=== PATIENT | female | born 1955 | race Caucasian/White ===

== ENCOUNTER 2023-02-16 09:45 | Outpatient (REF) | payer OTHER, SELFPAY ==
[2023-02-16 14:51] LABS: Alanine Aminotransferase 14 U/L (0-31); Albumin Level 4.3 g/dL (3.5-5.0); Alkaline Phosphatase 58 U/L (39-117); Anion Gap 12 (12-20); Aspartate Amino Transferase 19 U/L (5-31); Bilirubin Direct 0.2 mg/dL (0.0-0.5); Bilirubin Total 0.4 mg/dL (0.0-1.0); Blood Urea Nitrogen 15 mg/dL (9-16); Calcium 9.8 mg/dL (8.4-10.2); Carbon Dioxide 29 mmol/L (22-29); Chloride 105 mmol/L (96-108); Cholesterol 233 mg/dL (<200); Estimated Glomerular Filt Rate > 60; Glucose Random 87 mg/dL (60-115); HDL Cholesterol 84 mg/dL (>40); LDL Cholesterol Calculated 134 mg/dL (<100); Potassium 4.5 mmol/L (3.3-5.1); Sodium 141 mmol/L (135-145); Total Protein 7.3 g/dL (6.5-8.0); Triglycerides 77 mg/dL (<150)
[2023-02-16 15:05] LABS: Thyroid Stimulating Hormone 1.07 uIU/mL (0.32-4.0)
== END 2023-02-16 09:46 | disposition home or self-care (01) ==
LOC: HO.CHCLDS 09:45
PROVIDERS: Visit Provider Student in an Organized Health Care Education/Training Program
DX: E03.9 Hypothyroidism, unspecified (principal); E78.5 Hyperlipidemia, unspecified; M25.571 Pain in right ankle and joints of right foot; M25.561 Pain in right knee
CPT/HCPCS: 36415; 80048; 80061; 80076; 84443

== ENCOUNTER 2023-08-27 10:31 | Outpatient (RCR) | payer OTHER, SELFPAY | END 2023-09-29 08:35 | disposition home or self-care (01) | LOC: HO.PTCHIC 10:31 | PROVIDERS: PCP Student in an Organized Health Care Education/Training Program; Visit Provider Student in an Organized Health Care Education/Training Program | DX: M17.11 Unilateral primary osteoarthritis, right knee (principal) | CPT/HCPCS: 97110; 97161 ==

== ENCOUNTER 2023-09-30 09:38 | Outpatient (REF) | payer OTHER, SELFPAY ==
[2023-09-30 15:14] LABS: Alanine Aminotransferase 15 U/L (0-31); Albumin Level 4.2 g/dL (3.5-5.0); Alkaline Phosphatase 68 U/L (39-117); Anion Gap 13 (12-20); Aspartate Amino Transferase 21 U/L (5-31); Bilirubin Direct < 0.2 mg/dL (0.0-0.5); Bilirubin Total 0.2 mg/dL (0.0-1.0); Blood Urea Nitrogen 11 mg/dL (9-16); Calcium 9.7 mg/dL (8.4-10.2); Carbon Dioxide 27 mmol/L (22-29); Chloride 108 mmol/L (96-108); Cholesterol 200 mg/dL (<200); Estimated Glomerular Filt Rate > 60; Glucose Random 82 mg/dL (60-115); HDL Cholesterol 72 mg/dL (>40); LDL Cholesterol Calculated 90 mg/dL (<100); Potassium 4.7 mmol/L (3.3-5.1); Sodium 143 mmol/L (135-145); Total Protein 7.3 g/dL (6.5-8.0); Triglycerides 192 mg/dL (<150)
[2023-09-30 15:28] LABS: TSH reflex Free T4 0.66 uIU/mL (0.32-4.0)
== END 2023-09-30 09:39 | disposition home or self-care (01) ==
LOC: HO.CHCLDS 09:38
PROVIDERS: Visit Provider Student in an Organized Health Care Education/Training Program
DX: I10 Essential (primary) hypertension (principal)
CPT/HCPCS: 36415; 80048; 80061; 80076; 84443

== ENCOUNTER 2024-06-10 09:43 | Outpatient (REF) | payer OTHER, SELFPAY ==
--- OUTSIDE RECORDS SUMMARY | 2024-06-10 10:49 | XMS_ITS | Encounter Summary ---
Author Organization [employer] Address [address] [place] [address] 7t [place] [address] Care Team Providers Care Cementer Hand Name Role Phone Cesilia Otero MD Primary Care Provider [phone] Encounter Details Date Type Department Care Team (Latest Contact Info) Description 07/13/2018 Abstract [facility] CONVERSIONS Dental, Provider, DDS Social History Tobacco Use Types Packs/Day Years Used Date Smoking Tobacco: Never Assessed Comments Unknown Sex and Gender Information Value Date Recorded Sex Assigned at Female 01/06/2022 10:20 AM EDT Legal Sex Female 10:20 AM EDT Gender Identity Female 01/06/2022 10:20 AM EDT Sexual Orientation Straight 01/06/2022 10 :20 AM EDT documented as of this encounter Plan of Treatment Upcoming Encounters Date Type Department Care Team (Late st Contact Info) Description 08/29/2024 3:00 PM EDT Office Visit [facility] ADULT DENTAL [address] [place] [address] Windy Mackey documented as of this encounter Visit Diagnoses Not on filedocumented in this encounter Care Teams Cementer Hand Relationship Specialty Start Date End Date Cesilia Otero MD [address] [place] [address] PCP - General Family Medicine 02/23/12 documented as of this encounter
--- OUTSIDE RECORDS SUMMARY | 2024-06-10 10:49 | XMS_ITS | Encounter Summary ---
Author Organization [employer] Address [address] [facility] 7t [place] [address] Care Team Providers Care Kinesiology Internship Name Role Phone Cesilia Otero MD Primary Care Provider [phone] Encounter Details Date Type Department Care Team (Latest Contact Info) Description 06/08/2024 9:30 AM EDT Office Visit [facility] MED & PEDS [address] [place], [place] [phone] Cesilia Otero MD [address] [place] [address] Primary hypertension (Primary Dx); Hypothyroidism, unspecified type; Hyperlipidemia, unspecified hyperlipidemia type Social History Tobacco Use Types Packs/Day Years Used Date Smoking Tobacco: Never Smokeless Tobacco: Never Alcohol Use Standard Drinks/Week Comments Never 0 (1 standard drink = 0.6 oz pur e alcohol) Depression Answer Date Recorded Patient Health Questionnaire-9 Score 0 06/08/2024 Patient Health Questionnaire-9 Score 0 06/08/2024 Last PHQ-9: Questionnaire Data Not on file 0 06/08/2024 Housing Stability Answer Date Recorded What is your housing situation today? I have angel wong 09/22/[address] you li ve. Do you have problems with any of the following? None of the above 09/22/2023 Food Insecurity Answer Date Recorded Within the past 12 months, y ou worried that your food would run out before you got money to buy more: Never True 09/22/2023 Within the past 12 months,th e food you bought just didn't last and you didn't have enough money to get more: Never True Transportation Answer Date Recorded In the past 12 months, has l ack of transportation kept you from medical appts, meetings, work or from getting things needed for daily living? No 09/22/2023 Utilities Answer Date Recorded In the past 12 months, has t he electric, gas, oil or water company threatened to shut off services in your home? No 09/22/2023 Depression Answer Date Recorded Patient Health Questionnaire-2 Score 0 06/08/2024 Internet Access Answer Date Recorded Internet Access Q1 Yes 05/31/2024 Internet Access Q2 I do not want or need it 05/08 Comments No Sex and Gender Information Value Date Recorded Sex Assigned at Female 01/06/2022 10:20 AM EDT Legal Sex Female 10:20 AM EDT Gender Identity Female 01/06/2022 10:20 AM EDT Sexual Orientation Straight 01/06/2022 10 :20 AM EDT documented as of this encounter Last Filed Vital Signs Vital Sign Reading Time Taken Comments Blood Pressure 124/79 06/08/2024 9:15 AM EDT Pulse 76 06/08/2024 9:15 AM EDT Temperature 36.4 ??C (97.6 ??F) 06/08/2024 9:15 AM ED T Respiratory Rate 18 06/08/2024 9:15 AM EDT Oxygen Saturation 97% 06/08/2024 9:15 AM EDT Inhaled Oxygen Concentration - - Weight 67.6 kg (149 lb) 06/08/2024 9:15 AM EDT Height 159 cm (5' 2.6 ) 06/08/2024 9:15 AM EDT Body Mass Index 26.73 06/08/2024 9:15 AM EDT documented in this encounter Progress Notes * Cesilia Otero MD - 06/08/2024 9:30 AM EDT Subjective Patient ID: Michell Harp is a 69 y.o. female who presents for No chief complaint on file.. Hypertension This is a chronic problem. The current episode started more than 1 year ago. The problem is unchanged. Pertinent negatives include no chest pain, headaches, neck pain, palpitations or shortness of breath. Risk factors for coronary artery disease include family history and sedentary lifestyle. Past treatments include calcium channel blockers. Review of Systems Constitutional: Negative. Respiratory: Negative. Negative for shortness of breath. Cardiovascular: Negative for chest pain and palpitations. Gastrointestinal: Negative. Genitourinary: Negative. Musculoskeletal: Negative for neck pain. Neurological: Negative for headaches. Objective Physical Exam Constitutional: Appearance: Normal appearance. HENT: Head: Normocephalic and atraumatic. Right Ear: Tympanic membrane normal. Left Ear: Tympanic membrane normal. Mouth/Throat: Mouth: Mucous membranes are moist. Eyes: Pupils: Pupils are equal, round, and reactive to light. Cardiovascular: Rate and Rhythm: Normal rate and regular rhythm. Pulmonary: Effort: Pulmonary effort is normal. Breath sounds: Normal breath sounds. Abdominal: General: Abdomen is flat. Palpations: Abdomen is soft. Musculoskeletal: General: Normal range of motion. Skin: General: Skin is warm. Neurological: General: No focal deficit present. Mental Status: She is alert. Psychiatric: Mood and Affect: Mood normal. Behavior: Behavior normal. Assessment/Plan Diagnoses and all orders for this visit: Primary hypertension Maintain a low-sodium diet (less than 2 grams per day). Maintain a regular cardiovascular exercise program. Advised to maintain a low-fat, low-cholesterol diet. Counseled regarding importance of weight loss. Counseled re: potential co-morbidities including cardiovascular disease. - Basic Metabolic Panel; Future - Lipid Panel, Standard; Future - Hepatic Function Panel; Future Hypothyroidism, unspecified type Comments: Cont levothyroxine Labs ordered today Orders: - TSH with Reflex to Free T4; Future Hyperlipidemia, unspecified hyperlipidemia type Advised to maintain a low-fat, low-cholesterol diet. Counseled regarding importance of weight loss. - Basic Metabolic Panel; Future - Lipid Panel, Standard; Future - Hepatic Function Panel; Future documented in this encounter Plan of Treatment Upcoming Encounters Date Type Department Care Team (Late st Contact Info) Description 08/29/2024 3:00 PM EDT Office Visit [facility] ADULT DENTAL [address] [place] [address] Windy Mackey Scheduled Orders Name Type Priority Associated Diagnoses Orde r Schedule Basic Metabolic Panel Lab Routine Primary hypertension Hyperlipidemia, unspecified hyperlipidemia type Expected: 06/08/2024 (Approximate), Expires: 06/08/2025 Lipid Panel, Standard Lab Routine Primary hypertension Hyperlipidemia, unspecified hyperlipidemia type Expected: 06/08/2024 (Approximate), Expires: 06/08/2025 Hepatic Function Panel Lab Routine Primary hypertension Hyperlipidemia, unspecified hyperlipidemia type Expected: 06/08/2024 (Approximate), Expires: 06/08/2025 TSH with Reflex to Free T4 Lab Routine Hypothyroidism, unspecified type Expected: 06/08/2024 (Approximate), Expires: 06/08/2025 documented as of this encounter Visit Diagnoses Diagnosis Primary hypertension- Primary Unspecified essential hypertension Hypothyroidism, unspecified type Hyperlipidemia, unspecified hyperlipidemia type documented in this encounter Additional Health Concerns Assessment Noted Time PHQ-9 Depression Total Score: 0 06/09/19 25 9:16 AM EDT documented as of this encounter Care Teams Kinesiology Internship Relationship Specialty Start Date End Date Cesilia Otero MD [address] [place] [id number] PCP - General Family Medicine 02/23/12 documented as of this encounter
--- OUTSIDE RECORDS SUMMARY | 2024-06-10 10:49 | XMS_ITS | Clinical Summary ---
Author Organization [employer] Address [address] [facility] 7t [place] [address] Care Team Providers Care Executive Account Manager Name Role Phone Cesilia Otero MD Primary Care Provider [phone] Allergies Active Allergy Reactions Criticality Noted Date Comments Chlorthalidone Palpitations Low 11/26/2018 Medications [id number] E (Co Q-10 Vitamin E Fish Oil) [id number] capsule Take 1 tablet by mouth. 09/12/19 16 Active ergocalciferol (Vitamin D-2) 1.25 MG (11641 UT) capsule Take 1 capsule by mouth once a week. 01/05/20 20 Active melatonin 5 MG tabletIndication s:Primary insomnia 5 to 10 mg at bedtime 60 tablet 3 07/29/19 24 Active Blood Pressure kitIndications:P rimary hypertension To check the BP every other day. 1 kit 07/29/19 24 Active levothyroxine (Synthroid) 75 MCG tablet Take 1 tablet (75 mcg) by mouth before breakfast. 30 tablet 11 09/22/19 24 025 Active gemfibrozil (Lopid) 600 MG tablet Take 1 tablet (600 mg) by mouth 2 times daily. 60 tablet 11 09/22/19 24 025 Active simvastatin (Zocor) 40 MG tablet Take 0.5 tablets (20 mg) by mouth at bedtime. 15 tablet 11 09/22/19 24 025 Active amLODIPine (Norvasc) 5 MG tabletIndication s:Primary hypertension Take 1 tablet (5 mg) by mouth Once per day. 30 tablet 11 09/22/19 24 025 Active triamcinolone (Kenalog) 0.1 % cream APPLY TOPICALLY TO AFFECTED AREA(s) TWICE DAILY IN THE MORNING AND AT BEDTIME NEEDED 30 g 2 12/10/19 24 Active Diclofenac Sodium 1 % gelIndications:A cute pain of right knee To apply to the affected area 3 times a day 100 g 07/29/19 24 025 Discontinued Active Problems Problem Noted Date Diagnosed Date Dental calculus 10/26/2023 Missing teeth, acquired 10/26/2023 Primary hypertension 09/22/2023 Overview (09/22/2023): DASH diet Keep as active as tolerated. Follow up w/ PCP in 4 to 6 weeks. Dental plaque 08/27/2022 Hypothyroidism 07/04/2011 Hyperlipidemia 07/04/2011 Encounters Date Type Department Care Team Description 06/08/2024 9:30 AM EDT Office Visit [facility] & [facility]EDS [address] [place], [place] [phone] Cesilia Otero MD Primary hypertension (Primary Dx); Hypothyroidism, unspecified type; Hyperlipidemia, unspecified hyperlipidemia type 06/08/2024 Travel 2024 Telephone [facility] [address] [place], [place] [phone] Cesilia Otero MD 05/31/2024 Patient Outreach [facility] MEDIC[facility] [address] [place] [phone] Cesilia Otero MD Pre-visit Planning (SDOH screening negative and Tobacco screening negative) 05/26/2024 Orders Only [facility] [address] [place] [address] ProviderNazia MD from Last 3 Months Immunizations Name Administration Dates Next Due Influenza injectable quadriv alent IIV4 with preservative 12/01/2014 Influenza, IIV3, injectable 12/30/2013 Influenza, Split (incl. purified surface antigen ) 11/14/2011 Pfizer Covid-19 Vaccine 12+ 08/17/2020, Social History Tobacco Use Types Packs/Day Years Used Date Smoking Tobacco: Never Smokeless Tobacco: Never Tobacco Cessation:Counseling Given: Not Answered Alcohol Use Standard Drinks/Week Comments Never 0 [...] Orientation Straight 01/06/2022 10 :20 AM EDT Last Filed Vital Signs Vital Sign Reading [...] Mass Index 26.73 06/08/2024 9:15 AM EDT Plan of Treatment Upcoming Encounters Date Type Department Care Team (Late st Contact Info) Description 08/29/2024 3:00 PM EDT Office Visit [facility] ADULT DENTAL [address] [place] [address] Windy Mackey Health Maintenance Due Date Last Done Comments CT Colonography 1956 Colonoscopy 1956 Colorectal Cancer Screening 1956 FIT DNA/Cologuard 1956 FIT 1956 FOBT 1956 Sigmoidoscopy 1956 Hepatitis C Screening 1974 Pneumococcal Vaccine: 50+ Years (1 of 1 - PCV) 2006 Zoster Vaccines (1 of 2) 2006 COVID-19 Vaccine (3 - season) 2023 08/17/2020, 07/27/2020 Influenza Vaccine (#1) 2023 5, 12/30/2013, 11/14/2011 Dental Oral Exam 04/28/2024 10/26/2023, , 03/14/2019, Additional history exists Dental Prophylaxis 04/28/2024 10/26/2023, 0 08/27/2022, 03/14/2019, Additional history exists DTaP/Tdap/Td Vaccines (1 - Tdap) 09/21/2024 Postponed from 06/08/1975 (Patient Refused) Tobacco Screening 10/25/2024 10/26/2023 Dental X-Ray: Bitewings 10/26/2024 10/26/19 24, 08/27/2022, 03/14/2019, Additional history exists Mammogram 05/25/2025 05/25/2024, 05/07, 05/25/2024 Alcohol/Substance Use Screening 06/08/2025 06/08/2024 Depression Screening 06/08/2025 06/08/2024, 06/09/19 SDOH Screening 06/08/2025 06/08/2024 Dental X-Ray: Full Mouth 08/28/2025 08/27/2022, 06/08 Lipid Panel 09/29/2028 09/30/2023, 02/06, 08/05/2022, Additional history exists RSV Patients and Patients Aged 60 years or older (1 - 1-dose 75+ series) 06/08/2031 HIB Vaccines Aged Out No longer eligi ble based on patient's age to complete this topic HPV Vaccines Aged Out No longer eligi ble based on patient's age to complete this topic Hepatitis A Vaccines Aged Out No long er eligible based on patient's age to complete this topic Hepatitis B Vaccines Aged Out No long er eligible based on patient's age to complete this topic IPV Vaccines Aged Out No longer eligi ble based on patient's age to complete this topic Meningococcal Vaccine Aged Out No hilton eugene eligible based on patient's age to complete this topic RSV under 20 months Aged Out No longe r eligible based on patient's age to complete this topic Rotavirus Vaccines Aged Out No longer eligible based on patient's age to complete this topic Procedures Procedure Name Priority Date/Time Associated Diagnosis Comments HM MAMMOGRAPHY Routine 05/25/2024 2:35 PM EDT Full PROPHYLAXIS - ADULT Routine 10/26/2023 3:00 PM EDT Dental calculus BITEWINGS - 4 RADIOGRAPHIC IMAGES Routine 10/26/2023 3:00 PM EDT Dental calculus Missing teeth, acquired PERIODIC ORAL EVALUATION - ESTABLISHED PATIENT Routine 10/26/2023 3:00 PM EDT LIPID PANEL, STANDARD Routine 09/30/2023 9:41 AM EDT Primary hypertension INTRAORAL - COMPLETE SERIES OF RADIOGRAPHIC IMAGES Routine 08/27/2022 1:00 PM EDT Dental plaque from Last 3 Months or Most Recently Relevant to Health Maintenance Results * Hm Mammography (05/25/2024 2:35 PM EDT) Anatomical Region Laterality Modality Other Historical Provider MD HEALTH MAINTENANCE Final Result * (ABNORMAL) Lipid Panel, Standard (09/30/2023 9:41 AM EDT) Triglycerides 192(H) <150 mg/dL [facility] Comment:Desirable Triglyceri de: less than 150 mg/dLBorderline High Triglyceride 150-199 mg/dLHigh Triglyceride: 200-499 mg/dLVery High Triglyceride: greater than or equal to 5OO mg/dL Cholesterol 200(H) <200 mg/dL [facility] Comment:Desirable Cholestero l: less than 200 mg/dLBorderline High Cholesterol: 200-239 mg/dLHigh Cholesterol: greater than 239 mg/dL LDL Cholesterol Calculated 90 <100 mg/dL [facility] Comment:Desirable LDL: less than 100 mg/dLNear Optimal/Above Optimal LDL: 110- 129 mg/dLBorderline High LDL: 130-159 mg/dLHigh LDL: 160-189 mg/dLVery High LDL: greater than or equal to 190 mg/dL HDL Cholesterol 72 >40 mg/dL [facility] Comment:Desirable HDL: great er than 40 mg/dL Note: This HDL assay may give artificially low results in patients with liver disease. Blood Venous blood specimen / Unknown 09/30/2023 9:41 AM EDT 09/30/2023 2:40 PM EDT us Cesilia Otero MD LAB BLOOD ORDERABLES Final Resul t [facility] [address] [place] [address] [phone] from Last 3 Months or Most Recently Relevant to Health Maintenance Insurance [facility] DUAL COMPLETE HMO [facility] [place] [address] DENTAL - [facility] * Guarantor: Michell Harp Account Type Relation to Patient Date of Phone Billing Address Personal/[place] [address] * Guarantor: Michell Harp Account Type Relation to Patient Date of Phone Billing Address Personal/[place] [address] Care Teams Executive Account Manager Relationship Specialty Start Date End Date Cesilia Otero MD [address] [place] [id number] PCP - General Family Medicine 02/23/12
--- OUTSIDE RECORDS SUMMARY | 2024-06-10 10:49 | XMS_ITS | Encounter Summary ---
Author Organization [employer] Address [address] [facility] [address]t [place] [address] Care Team Providers Care Senior Accounting Associate Name Role Phone Cesilia Otero MD Primary Care Provider [phone] Encounter Details Date Type Department Care Team ([facility] Contact Info) Description 2024 Telephone [facility] [address] [place], [place] [phone] Cesilia Otero MD [address] [place] [address] Social History Tobacco Use Types Packs/Day Years [...] AM EDT documented as of this encounter Miscellaneous Notes * Telephone Encounter - Dayan Pritchard [place] - 2024 2:29 PM EDT Chart Prep Labs: done Images: done Vaccines due: yes Referrals: complete Screenings: colonoscopy Overdue care gaps: SDOH documented in this encounter Plan of Treatment Upcoming Encounters Date Type Department Care Team (Late st Contact Info) Description 08/29/2024 3:00 PM EDT Office Visit [facility] ADULT DENTAL [address] [place] [address] Windy Mackey documented as of this encounter Visit Diagnoses Not on filedocumented in this encounter Additional Health Concerns Assessment Noted Time PHQ-9 Depression Total Score: 0 08/02/19 10:54 AM EDT documented as of this encounter Care Teams Senior Accounting Associate Relationship Specialty Start Date End Date Cesilia Otero MD [address] [place] [address] PCP - General Family Medicine 02/23/12 documented as of this encounter
--- OUTSIDE RECORDS SUMMARY | 2024-06-10 10:49 | XMS_ITS | Encounter Summary ---
Author Organization [employer] Address [address] [facility] [address] [address] 7[address] [place] [address] Care Team Providers Care Solution Designer Name Role Phone Cesilia Otero MD Primary Care Provider [phone] Encounter Details Date Type Department Care Team ([facility] st Contact Info) Description 03/31/2023 Telephone [facility] [address] [place], [place] [phone] Cesilia Otero MD [address] [place], [place] [phone] Social History Tobacco Use Types Packs/Day Years Used Date Smoking Tobacco: Never Smokeless Tobacco: Never Alcohol Use Standard Drinks/Week Comments Never 0 (1 standard drink = 0.6 oz pur e alcohol) Depression Answer Date Recorded Patient Health Questionnaire-9 Score 0 08/01/2022 Housing Stability Answer Date Recorded What is your housing situation today? I have angeljae wong 12/14/[address] you li ve. Do you have problems with any of the following? No or not working smoke detectors 12/14/2022 Food Insecurity Answer Date Recorded Within the past 12 months, y ou worried that your food would run out before you got money to buy more: Never True 12/29/2022 Within the past 12 months,th e food you bought just didn't last and you didn't have enough money to get more: Never True Transportation Answer Date Recorded In the past 12 months, has l ack of transportation kept you from medical appts, meetings, work or from getting things needed for daily living? No 12/29/2022 Utilities Answer Date Recorded In the past 12 months, has t he electric, gas, oil or water company threatened to shut off services in your home? No 12/29/2022 Depression Answer Date Recorded Patient Health Questionnaire-2 Score 0 08/01/2022 Comments Unknown Sex and Gender Information Value [...] Description 08/29/2024 3:00 PM EDT Office Visit [facility] ADULT DENTAL [address] [place] [address] Windy Mackey documented as of this encounter Visit Diagnoses Not on filedocumented in this encounter Additional Health Concerns Assessment Noted Time PHQ-9 Depression Total Score: 0 08/02/19 10:54 AM EDT documented as of this encounter Care Teams Solution Designer Relationship Specialty Start Date End Date Cesilia Otero MD [address] [place] [address] PCP - General Family Medicine 02/23/12 documented as of this encounter
--- OUTSIDE RECORDS SUMMARY | 2024-06-10 10:49 | XMS_ITS | Encounter Summary ---
Author Organization [employer] Address [address] [facility] [address]t [place] [address] Care Team Providers Care Credit Counselor Name Role Phone Cesilia Otero MD Primary Care Provider [phone] Reason for Visit * Reason Onset Date Comments Results 03/05/2023 Encounter Details Date Type Department Care Team ([facility] st Contact Info) Description 03/05/2023 Telephone [facility] [address] [place], [place] [phone] Cesilia Otero MD [address] [place] [address] Results Social History Tobacco Use Types Packs/Day Years [...] encounter Miscellaneous Notes * Telephone Encounter - Ekaterina Perez RN - 03/31/2023 1:40 PM EST Returned call to pt regarding message below. Pt informed of normal labs except cholesterol levels. Reviewed lifestyle modifications with pt and also informed of stable XR results. Pt verbalized understanding and agrees with plan. * Telephone Encounter - Tessy Romo - 03/31/2023 11:49 AM EST Tc from pt returning call in regards below, please contact pt. * Telephone Encounter - Alyssa Farah RN - 03/05/2023 2:24 PM EST TC placed to patient at both numbers to review recent x-ray and lab results. No answer at either number. LM to call us back. Routing back to [facility] nurses to try again. Tc from pt requesting results for Xray done 02/16/23 and Labs that were also done on 02/16/23. Please contact pt at [phone]. * Telephone Encounter - Thomas Clarke - 03/05/2023 10:23 AM EST Tc from pt requesting results for Xray done 02/16/23 and Labs that were also done on 02/16/23. Please contact pt at [phone]. documented in this encounter Plan of Treatment Upcoming Encounters Date Type Department Care Team (Late st Contact Info) Description 08/29/2024 3:00 PM EDT Office Visit [facility] [address] [facility] [place] [address] Windy Mackey documented as of this encounter Visit Diagnoses Not on filedocumented in this encounter Additional Health Concerns Assessment Noted Time PHQ-9 Depression Total Score: 0 08/02/19 10:54 AM EDT documented as of this encounter Care Teams Credit Counselor Relationship Specialty Start Date End Date Cesilia Otero MD [address] [facility] [place] [address] PCP - General Family Medicine 02/23/12 documented as of this encounter
--- OUTSIDE RECORDS SUMMARY | 2024-06-10 10:49 | XMS_ITS | Encounter Summary ---
Author Organization [employer] Address [address] [facility] 7t [place] [address] Care Team Providers Care It Sales Consultant Name Role Phone Cesilia Otero MD Primary Care Provider [phone] Encounter Details Date Type Department Care Team (Late st Contact Info) Description 05/26/2024 Orders Only [facility] [address] [place] [employer], [place] [phone] ProviderNazia MD Social History Tobacco Use Types Packs/Day Years Used Date Smoking Tobacco: Never Smokeless Tobacco: Never Alcohol Use Standard Drinks/Week Comments Never 0 (1 standard drink = 0.6 oz pur e alcohol) Depression Answer Date Recorded Patient Health Questionnaire-9 Score 0 08/01/2022 Housing Stability Answer Date Recorded What is your housing situation today? I have angel wnog 09/22/[address] you li [...] Recorded Patient Health Questionnaire-2 Score 0 08/01/2022 Internet Access Answer Date Recorded Internet Access Q1 No 11/06/2023 Internet Access Q2 I do not want or need it 10/09 Comments No Sex and Gender Information Value [...] Description 08/29/2024 3:00 PM EDT Office Visit [facility] ADULT D[facility]AL [address] [place] [address] Windy Mackey documented as of this encounter Procedures Procedure Name Priority Date/Time Associated Diagnosis Comments HM MAMMOGRAPHY Routine 05/25/2024 2:35 PM EDT documented in this encounter Results * Hm Mammography (05/25/2024 2:35 PM EDT) Anatomical Region Laterality Modality Other Historical Provider HEALTH MAINTENANCE Final Result documented in this encounter Visit Diagnoses Not on filedocumented in this encounter Additional Health Concerns Assessment Noted Time PHQ-9 Depression Total Score: 0 08/02/19 10:54 AM EDT documented as of this encounter Care Teams It Sales Consultant Relationship Specialty Start Date End Date Cesilia Otero MD [address] [place] [address] PCP - General Family Medicine 02/23/12 documented as of this encounter
--- OUTSIDE RECORDS SUMMARY | 2024-06-10 10:49 | XMS_ITS | Encounter Summary ---
Author Organization [employer] Address [address] [place] [address] 7 [place] [address] Care Team Providers Care Metalizer Field Operation Name Role Phone Cesilia Otero MD Primary Care Provider [phone] Reason for Referral * Consultation (Routine) - Closed Specialty Diagnoses / Procedures Referred By Angelika chandra Referred To Contact Physical Therapy Diagnoses Primary osteoarthritis of right knee Kaylin Smith MD [address] [place] [address] Phone: tel: fax: [facility] [place] Physical Therapy [address] [place] [address] Phone: tel: fax: Referral ID Status Reason Start Date Expiration Date V isits Requested Visits Authorized [id number] Closed Specialty Services Required 08/04/2023 08/03/2024 1 1 Encounter Details Date Type Department Care Team (Late st Contact Info) Description 08/04/2023 Orders Only [facility] CHC MED & PEDS [address] [place], [place] [phone] Kaylin Smith MD [address] [place], [place] [phone] Primary osteoarthritis of right knee (Primary Dx) Social History Tobacco Use Types Packs/Day Years Used Date Smoking Tobacco: Never Smokeless Tobacco: Never Alcohol Use Standard Drinks/Week Comments Never 0 (1 standard drink = 0.6 oz pur e alcohol) Depression Answer Date Recorded Patient Health Questionnaire-9 Score 0 08/01/2022 Housing Stability Answer Date Recorded What is your housing situation today? I have angel wong 12/14/[address] you [...] Description 08/29/2024 3:00 PM EDT Office Visit [facility] ADULT DENTAL [address] [place] [address] Windy Mackey Scheduled Referrals Name Type Priority Associated Diagnoses Orde r Schedule Referral to Physical Therapy Outpatient Referral Routine Primary osteoarthritis of right knee Expected: 08/04/2023 (Approximate), Expires: 08/03/2024 documented as of this encounter Visit Diagnoses Diagnosis Primary osteoarthritis of right knee- Primary documented in this encounter Additional Health Concerns Assessment Noted Time PHQ-9 Depression Total Score: 0 08/02/19 10:54 AM EDT documented as of this encounter Care Teams Metalizer Field Operation Relationship Specialty Start Date End Date Cesilia Otero MD [address] [place] [address] PCP - General Family Medicine 02/23/12 documented as of this encounter
--- OUTSIDE RECORDS SUMMARY | 2024-06-10 10:49 | XMS_ITS | Clinical Summary ---
Author Organization [facility] Address [address] [place] [phone] Phone Care Team Providers Care Reinforcing Steel Placer Name Role Phone Cesilia Otero MD Primary Care Provider [phone] Encounters Date Type Department Care Team Description 05/25/2024 1:28 PM EDT - 05/25/2024 11:59 PM EDT Hospital [facility] [address] [address] Encounter for screening mammogram for breast cancer Discharge Disposition: Home or Self Care from Last 3 Months Social History Tobacco Use Types Packs/Day Years Used Date Smoking Tobacco: Never Assessed Comments No Sex and Gender Information Value Date Recorded Sex Assigned at Not on file Legal Sex Female 12:49 AM EST Gender Identity Not on file Sexual Orientation Not on file Obstetrics History Para Term AB IAB SAB Ectopic Multiple Livin g Live Births 4 Last Filed Vital Signs Vital Sign Reading Time Taken Comments Blood Pressure - - Pulse - - Temperature - - Respiratory Rate - - Oxygen Saturation - - Inhaled Oxygen Concentration - - Weight 65.3 kg (144 lb) 05/25/2024 1:43 PM EDT Height 160 cm (5' 3 ) 05/25/2024 1:43 PM EDT Body Mass Index 25.51 05/25/2024 1:43 PM EDT Plan of Treatment Health Maintenance Due Date Last Done Comments DTaP,Tdap,and Td Vaccines (1 - Tdap) 06/08/1975 Pneumococcal Vaccine: 50+ Years (1 of 1 - PCV) 2006 Zoster Vaccines (1 of 2) 2006 Colorectal Cancer Screening: Colonoscopy 02/09/2022 Falls Risk Assessment 02/09/2022 Hepatitis C Screening 02/09/2022 Medicare Annual Wellness Visit 02/09/2022 Osteoporosis Screening (Bone Density Screening) 02/09/2022 Social Influencers of Health Screening 02/09/2022 Depression Screening 08/02/2023 08/01/2022 COVID-19 Vaccine ( season) 2023 08/17/2020, 07/27/2020 Hypertension/CHF/CAD Annual BMP Blood Test 05/25/2024 Influenza Vaccine (Season Ended) 2024 12/01/2014, 12/30/2013, 11/14/2011 Breast Cancer Screening 05/25/2026 05/26/19, 02/27/2023, 12/27/2021, Additional history exists Cholesterol Screening (Lipid Panel) 09/29/2028 09/30/2023 RSV Immunization Adult Patients (1 - 1-dose 75+ series) 06/08/2031 HIB [...] on patient's age to complete this topic MMR Vaccines Aged Out No longer eligi ble based on patient's age to complete this topic Meningococcal ACWY Vaccine Aged Out N o longer eligible based on patient's age to complete this topic Meningococcal B Vacine Aged Out No lo nger eligible based on patient's age to complete this topic RSV Immunization Patients Under 20 months Aged Out No longer eligible based on patient's age to complete this topic Varicella Vaccines Aged Out No longer eligible based on patient's age to complete this topic Procedures Procedure Name Priority Date/Time Associated Diagnosis Comments MG MAMMO DIGITAL SCREENING W JARET BILAT Routine 05/25/2024 1:44 PM EDT Encounter for screening mammogram for breast cancer from Last 3 Months Results * MG Mammo Digital Screening w Jaret bilat (05/25/2024 1:44 PM EDT) Anatomical Region Laterality Modality Breast Bilateral Mammography 05/25/2024 3:47 PM EDT Impressions 05/25/2024 3:48 PM EDT No evidence of breast malignancy. BI-RADS CATEGORY: 1 - NEGATIVE RECOMMENDATION: Screening bilateral mammogram is recommended in 1 year. Mammo Location: [facility], [address] [place] [address], [address], . -------- FINAL REPORT -------- Dictated By: Carley Maldonado Dictated Date: 05/25/2024 15:47 ET Assigned Physician: Carley Maldonado Reviewed and Electronically Signed By: Carley Maldonado Signed Date: 05/25/2024 15:48 ET Workstation ID: [id number] Transcribed By: Self Edit Transcribed Date: 05/25/2024 15:47 ET Narrative 05/25/2024 3:48 PM EDT CLINICAL: 68 years old, Female, routine annual exam. COMPARISON: 02/27/2023, 12/27/2021, 10/12/2020, 10/22/2019 and 08/09/2018 ?? TECHNIQUE: Bilateral MLO and CC views were obtained digitally with 3-D mammogram (digital breast tomosynthesis). Computer-aided detection was utilized in evaluation of this exam (CAD). FINDINGS: There is no evidence of suspicious mass or architectural distortion. ??No worrisome calcifications are evident. ??There has been no significant change from prior exam(s). ?? BREAST DENSITY: A - The breasts are almost entirely fatty. Procedure Note Carley Maldonado MD - 05/25/2024 CLINICAL: 68 years old, Female, routine annual exam. COMPARISON: 02/27/2023, 12/27/2021, 10/12/2020, 10/22/2019 and 08/09/2018 TECHNIQUE: Bilateral MLO and CC views were obtained digitally with 3-Dmammogram (digital breast tomosynthesis). Computer-aided detection wasutilized in evaluation of this exam (CAD). FINDINGS: There is no evidence of suspicious mass or architectural distortion. Noworrisome calcifications are evident. There has been no significantchange from prior exam(s). BREAST DENSITY: A - The breasts are almost entirely fatty. IMPRESSION: No evidence of breast malignancy. BI-RADS CATEGORY: 1 - NEGATIVE RECOMMENDATION: Screening bilateral mammogram is recommended in 1 year. Mammo Location: [facility], [address] [place] [address], [id number], . -------- FINAL REPORT -------- Dictated By: Carley Maldonado Dictated Date: 05/25/2024 15:47 ET Assigned Physician: Carley Maldonado Reviewed and Electronically Signed By: Carley Maldonado Signed Date: 05/25/2024 15:48 ET Workstation ID: [id number] Transcribed By: Self Edit Transcribed Date: 05/25/2024 15:47 ET us Self Referral Sppl IMG BI PROCEDURES Final Resul t from Last 3 Months Insurance [employer] MEDICARE MEDICAID - [place] Care Teams Reinforcing Steel Placer Relationship Specialty Start Date End Date Cesilia Otero MD [address] [place] [id number] PCP - General Family Medicine 05/25/24
--- OUTSIDE RECORDS SUMMARY | 2024-06-10 10:49 | XMS_ITS | Encounter Summary ---
Author Organization [employer] Address [address] [facility] 7t [place] [address] Care Team Providers Care Fern Gatherer Name Role Phone Cesilia Otero MD Primary Care Provider [phone] Encounter Details Date Type Department Care Team ([facility] st Contact Info) Description 09/30/2023 Orders Only [facility] CHC MED & PEDS [address] [place], [place] [phone] Cesilia Otero MD [address] [place], [place] [phone] Social History Tobacco Use Types Packs/Day Years [...] Patient Health Questionnaire-2 Score 0 08/01/2022 Comments No Sex and Gender Information Value [...] Description 08/29/2024 3:00 PM EDT Office Visit [facility] ADULT DENTAL [address] [place] [address] Windy Mackey documented as of this encounter Visit Diagnoses Not on filedocumented in this encounter Additional Health Concerns Assessment Noted Time PHQ-9 Depression Total Score: 0 08/02/19 10:54 AM EDT documented as of this encounter Care Teams Fern Gatherer Relationship Specialty Start Date End Date Cesilia Otero MD [address] [place] [address] PCP - General Family Medicine 02/23/12 documented as of this encounter
--- OUTSIDE RECORDS SUMMARY | 2024-06-10 10:49 | XMS_ITS | Encounter Summary ---
Author Organization [employer] Address [address] [facility] [address] 7t [place] [address] Care Team Providers Care Warehouse Logistics Manager Name Role Phone Cesilia Otero MD Primary Care Provider [phone] Encounter Details Date Type Department Care Team (Latest Contact Info) Description 06/08/2024 Travel Social History Tobacco Use Types Packs/Day Years [...] Description 08/29/2024 3:00 PM EDT Office Visit [facility] ADULT DENTAL [address] [place] [address] Windy Mackey documented as of this encounter Visit Diagnoses Not on filedocumented in this encounter Additional Health Concerns Assessment Noted Time PHQ-9 Depression Total Score: 0 06/09/19 25 9:16 AM EDT documented as of this encounter Care Teams Warehouse Logistics Manager Relationship Specialty Start Date End Date Cesilia Otero MD [address] [place] [address] PCP - General Family Medicine 02/23/12 documented as of this encounter
[2024-06-10 14:46] LABS: Alanine Aminotransferase 19 U/L (0-31); Albumin Level 4.1 g/dL (3.5-5.0); Alkaline Phosphatase 68 U/L (39-117); Anion Gap 9 (12-20); Aspartate Amino Transferase 26 U/L (5-31); Bilirubin Direct 0.2 mg/dL (0.0-0.5); Bilirubin Total 0.7 mg/dL (0.0-1.0); Blood Urea Nitrogen 10 mg/dL (9-16); Calcium 9.3 mg/dL (8.4-10.2); Carbon Dioxide 27 mmol/L (22-29); Chloride 108 mmol/L (96-108); Cholesterol 229 mg/dL (<200); Estimated Glomerular Filt Rate > 60; Glucose Random 83 mg/dL (60-115); HDL Cholesterol 78 mg/dL (>40); LDL Cholesterol Calculated 118 mg/dL (<100); Potassium 4.4 mmol/L (3.3-5.1); Sodium 140 mmol/L (135-145); Total Protein 6.9 g/dL (6.5-8.0); Triglycerides 165 mg/dL (<150)
== END 2024-06-10 09:44 | disposition home or self-care (01) ==
LOC: HO.CHCLDS 09:43
PROVIDERS: Visit Provider Student in an Organized Health Care Education/Training Program
DX: I10 Essential (primary) hypertension (principal); E78.5 Hyperlipidemia, unspecified; E03.9 Hypothyroidism, unspecified
CPT/HCPCS: 36415; 80048; 80061; 80076; 84443

== ENCOUNTER 2025-01-09 10:23 | Outpatient (REF) | payer MEDICARE, OTHER, SELFPAY ==
--- OUTSIDE RECORDS SUMMARY | 2025-01-09 12:25 | XMS_ITS | Encounter Summary ---
Author Organization [employer] Address [address] [facility] 7t [place] [address] Care Team Providers Care Pulverizer Operator Name Role Phone Cesilia Otero MD Primary Care Provider [phone] Hellen Mcconnell MD Primary Care Provider [phone] Encounter Details Date Type Department Care Team (Late st Contact Info) Description 05/26/2024 Orders Only [facility] [address] [place], [place] [phone] Provider, MD Nazia Social History Tobacco Use Types Packs/Day Years Used Date Smoking Tobacco: Never Smokeless Tobacco: Never Alcohol Use Standard Drinks/Week Comments Never 0 (1 standard drink = 0.6 oz pur e alcohol) Depression Answer Date Recorded Patient Health Questionnaire-9 Score 0 08/01/2022 Housing Stability Answer Date Recorded What is your housing situation today? I have angeljae wong 09/22/[address] you [...] as of this encounter Plan of Treatment Not on file documented as of this encounter Procedures Procedure [...] Time PHQ-9 Depression Total Score: 0 08/02/19 23 10:54 AM EDT documented as of this encounter Care Teams Pulverizer Operator Relationship Specialty Start Date End Date Cesilia Otero MD [address] [place] [address] PCP - General Family Medicine 02/23/12 01/04/25 Hellen Mcconnell MD [address] [place] [address] PCP - General Family Medicine 01/05/25 documented as of this encounter
--- OUTSIDE RECORDS SUMMARY | 2025-01-09 12:25 | XMS_ITS | Encounter Summary ---
Author Organization [email or web address] Address [address] [place] [address] Care Team Providers Care Electroslag Welding Machine Operator Name Role Phone Cesilia Otero MD Primary Care Provider [phone] Hellen Mcconnell MD Primary Care Provider [phone] Reason for Referral * Consultation (Routine) - Closed Specialty Diagnoses / Procedures Referred By Contfiona chandra Referred To Contact Physical Therapy Diagnoses Primary osteoarthritis of right knee Kaylin Smith MD [address] [place] [address] Phone: tel: fax: [facility] Physical Therapy [address] [place] [address] Phone: tel: fax: Referral ID Status Reason Start Date Expiration Date V isits Requested Visits Authorized [id number] Closed Specialty Services Required 08/04/2023 08/03/2024 1 1 Encounter Details Date Type Department Care Team (Late st Contact Info) Description 08/04/2023 Orders Only [facility] CHC MED & PEDS [address] [place], [place] [phone] Kaylin Smith MD [address] [place], [place] [phone] Primary osteoarthritis of right knee (Primary Dx) [...] as of this encounter Plan of Treatment Scheduled Referrals Name Type Priority Associated Diagnoses [...] documented as of this encounter Care Teams Electroslag Welding Machine Operator Relationship Specialty Start Date End Date Cesilia Otero MD [address] [place] [address] PCP - General Family Medicine 02/23/12 01/04/25 Hellen Mcconnell MD [address] [place] [address] PCP - General Family Medicine 01/05/25 documented as of this encounter
--- OUTSIDE RECORDS SUMMARY | 2025-01-09 12:25 | XMS_ITS | Encounter Summary ---
Author Organization [employer] Address [address] [place] [address] 7 [place] [address] Care Team Providers Care Band Saw Marker Name Role Phone Cesilia Otero MD Primary Care Provider [phone] Hellen Mcconnell MD Primary Care Provider [phone] Encounter Details Date Type Department Care Team (Latest Contact Info) Description 07/13/2018 [facility] Dental, Provider, DDS Social History Tobacco [...] on file documented as of this encounter Visit Diagnoses Not on filedocumented in this encounter Care Teams Band Saw Marker Relationship Specialty Start Date End Date Cesilia Otero MD [address] [place] [address] PCP - General Family Medicine 02/23/12 01/04/25 Hellen Mcconnell MD [address] [place] [address] PCP - General Family Medicine 01/05/25 documented as of this encounter
--- OUTSIDE RECORDS SUMMARY | 2025-01-09 12:25 | XMS_ITS | Encounter Summary ---
Author Organization [employer] Address [address] [facility] 7t [place] [address] Care Team Providers Care Meat Scrubber Name Role Phone Cesilia Otero MD Primary Care Provider [phone] Hellen Mcconnell MD Primary Care Provider [phone] Encounter Details Date Type Department Care Team ([facility] st Contact Info) Description 03/31/2023 Telephone [facility] MEDICINE [address] [place] [address] Cesilia Otero MD [address] [place], [place] [phone] Social History Tobacco Use Types Packs/Day Years Used Date Smoking Tobacco: Never Smokeless Tobacco: Never Alcohol Use Standard Drinks/Week Comments Never 0 (1 standard drink = 0.6 oz pur e alcohol) Depression Answer Date Recorded Patient Health Questionnaire-9 Score 0 08/01/2022 Housing Stability Answer Date Recorded What is your housing situation today? I have angel judith 12/14/[address] you li [...] documented as of this encounter Care Teams Meat Scrubber Relationship Specialty Start Date End Date Cesilia Otero MD [address] [place] [address] PCP - General Family Medicine 02/23/12 01/04/25 Hellen Mcconnell MD [address] [place] [address] PCP - General Family Medicine 01/05/25 documented as of this encounter
--- OUTSIDE RECORDS SUMMARY | 2025-01-09 12:25 | XMS_ITS | Clinical Summary ---
Author Organization [employer] Address [address] [facility] 7t [place] [address] Care Team Providers Care Spike Machine Feeder Name Role Phone Hellen Mcconnell MD Primary Care Provider [phone] Allergies Active Allergy Reactions Criticality Noted Date Comments Amlodipine Angioedema 07/18/2024 Chlorthalidone Palpitations Low 11/26/2018 Medications PIN-HUO-Fmyirvko A81-Inskluh E (Co Q-10 Vitamin E Fish Oil) 38-19-21-200 capsule Take 1 tablet by mouth. 6 Active ergocalciferol (Vitamin D-2) 1.25 MG (43412 UT) capsule Take 1 capsule by mouth once a week. 0 Active melatonin 5 MG tabletIndications :Primary insomnia 5 to 10 mg at bedtime 60 tablet 3 4 Active Blood Pressure kitIndications:Pr imary hypertension To check the BP every other day. 1 kit 4 Active triamcinolone (Kenalog) 0.1 % cream APPLY TOPICALLY TO AFFECTED AREA(s) TWICE DAILY IN THE MORNING AND AT BEDTIME NEEDED 30 g 2 4 Active simvastatin (Zocor) 40 MG tablet Take 1 tablet (40 mg) by mouth at bedtime. 30 tablet 11 5 07/19/19 26 Active lisinopril 10 MG tablet Take 1 tablet (10 mg) by mouth Once per day. 30 tablet 11 5 07/19/19 26 Active levothyroxine (Synthroid, Levoxyl) 75 MCG tablet TAKE ONE TABLET EVERY MORNING BEFORE BREAKFAST 90 tablet 3 5 Active gemfibrozil (Lopid) 600 MG tablet TAKE ONE TABLET TWICE DAILY 60 tablet 11 5 Active Active Problems Problem Noted Date Diagnosed Date Dental calculus 10/26/2023 Missing teeth, acquired 10/26/2023 Primary hypertension 09/22/2023 Overview (09/22/2023): DASH diet Keep as active as tolerated. Follow up w/ PCP in 4 to 6 weeks. Dental plaque 08/27/2022 Hypothyroidism 07/04/2011 Hyperlipidemia 07/04/2011 Encounters Date Type Department Care Team Description 01/02/2025 10:00 AM EDT Office Visit [facility] MED & PEDS [address] [place] [address] Cesilia Otero MD Primary hypertension (Primary Dx); Hypothyroidism, unspecified type; Hyperlipidemia, unspecified hyperlipidemia type; Screening for colon cancer 01/02/2025 Travel 12/30/2024 Telephone [facility] MED & PEDS [address] [place] [address] Cesilia Otero MD Chart Prep 11/14/2024 Refill [facility] MED & PEDS [address] [place] [address] Cesilia Otero MD 10/28/2024 Refill [facility] MED & PEDS [address] [place] [address] Cesilia Otero MD from Last 3 Months Immunizations Immunization Administration Dates Next Due Influenza injectable quadriv [...] your housing situation today? I have angel sing 09/22/[address] you li [...] Answer Date Recorded Internet Access Q1 Yes 09/25/2024 Internet Access Q2 Not on file 09/25/2024 Comments No Sex and Gender Information Value Date Recorded Sex Assigned at Female 01/06/2022 10:20 AM EDT Legal Sex Female 10:20 AM EDT Gender Identity Female 01/06/2022 10:20 AM EDT Sexual Orientation Straight 01/06/2022 10 :20 AM EDT Last Filed Vital Signs Vital Sign Reading Time Taken Comments Blood Pressure 156/86 01/02/2025 10:05 AM EDT Mannually checked Pulse 66 01/02/2025 10:05 AM EDT Temperature 36.9 C (98.4 F) 01/02/2025 10:05 AM EDT Respiratory Rate 18 01/02/2025 10:0 5 AM EDT Oxygen Saturation 97% 06/08/2024 9:1 5 AM EDT Inhaled Oxygen Concentration - - Weight 65.8 kg (145 lb) 01/02/2025 10:0 5 AM EDT Height 167.6 cm (5' 6 ) 01/02/2025 10:0 5 AM EDT Body Mass Index 23.4 01/02/2025 10:05 AM EDT Plan of Treatment Health Maintenance Due Date Last Done Comments CT Colonography 1955 Colonoscopy 1955 Colorectal Cancer Screening 1955 FIT DNA/Cologuard 1956 FIT 1956 FOBT 1955 Sigmoidoscopy 1955 Hepatitis C Screening 1974 DTaP/Tdap/Td Vaccines (1 - Tdap) 06/08/1975 Pneumococcal Vaccine: 50+ Years (1 of 1 - PCV) 2006 Zoster Vaccines (1 of 2) 2006 Dental Oral Exam 04/28/2024 10/26/2023, , 03/14/2019, Additional history exists Dental Prophylaxis 04/28/2024 10/26/2023, 0 08/27/2022, 03/14/2019, Additional history exists Dental X-Ray: Bitewings 10/26/2024 10/26/19 24, 08/27/2022, 03/14/2019, Additional history exists Mammogram 05/25/2025 05/25/2024, 05/07, 05/25/2024 Alcohol/Substance Use Screening 06/08/2025 06/08/2024 Depression Screening 06/08/2025 06/08/2024, 06/09/19 25 SDOH Screening 06/08/2025 06/08/2024 Dental X-Ray: Full Mouth 08/28/2025 08/27/2022, 06/08 Influenza Vaccine (#1) 2025 5, 12/30/2013, 11/14/2011 Postponed from 11/07/2024 (Patient Refused) COVID-19 Vaccine ( season) 2026 08/17/2020, 07/27/2020 Postponed from 11/07/2024 (Patient Refused) Tobacco Screening 01/02/2026 01/02/2025 Lipid Panel 06/10/2029 06/10/2024, 09/07, 02/16/2023, Additional history exists RSV Patients and Patients [...] age to complete this topic Meningococcal B Vaccine Aged Out No l onger eligible based on patient's age to complete [...] Procedure Name Priority Date/Time Associated Diagnosis Comments LIPID PANEL, STANDARD Routine 06/10/2024 9:44 AM EDT Primary hypertension Hyperlipidemia, unspecified hyperlipidemia type HM MAMMOGRAPHY Routine 05/25/2024 2:35 PM EDT Full PROPHYLAXIS - ADULT Routine 10/26/2023 3:00 PM EDT Dental calculus BITEWINGS - 4 RADIOGRAPHIC IMAGES Routine 10/26/2023 3:00 PM EDT Dental calculus Missing teeth, acquired PERIODIC ORAL EVALUATION - ESTABLISHED PATIENT Routine 10/26/2023 3:00 PM EDT INTRAORAL - COMPLETE SERIES OF RADIOGRAPHIC IMAGES Routine 08/27/2022 1:00 PM EDT Dental plaque from Last 3 Months or Most Recently Relevant to Health Maintenance Results * (ABNORMAL) Lipid Panel, Standard (06/10/2024 9:44 AM EDT) Triglycerides 165(H) <150 mg/dL [facility] Comment:Desirable Triglyceri de: less than 150 mg/dLBorderline High Triglyceride 150-199 mg/dLHigh Triglyceride: 200-499 mg/dLVery High Triglyceride: greater than or equal to 5OO mg/dL Cholesterol 229(H) <200 mg/dL [facility] Comment:Desirable Cholestero l: less than 200 mg/dLBorderline High Cholesterol: 200-239 mg/dLHigh Cholesterol: greater than 239 mg/dL LDL Cholesterol Calculated 118(H) <100 mg/dL [facility] Comment:Desirable LDL: less than 100 mg/dLNear Optimal/Above Optimal LDL: 110- 129 mg/dLBorderline High LDL: 130-159 mg/dLHigh LDL: 160-189 mg/dLVery High LDL: greater than or equal to 190 mg/dL HDL Cholesterol 78 >40 mg/dL [facility] Comment:Desirable HDL: great er than 40 mg/dL Note: This HDL assay may give artificially low results in patients with liver disease. Blood Venous blood specimen / Unknown 06/10/2024 9:44 AM EDT 06/10/2024 1:57 PM EDT us Cesilia Otero MD LAB BLOOD ORDERABLES Final Resul t [facility] [address] [place] [address] [phone] * Hm Mammography (05/25/2024 2:35 PM EDT) Anatomical Region Laterality Modality Other us Historical Provider HEALTH MAINTENANCE Final Result from Last 3 Months or Most Recently Relevant to Health Maintenance Insurance spring [facility], [place] [address] [facility] DUAL COMPLETE HMO DENTAL - [facility] - [facility] * Guarantor: Michell Harp Account Type Relation to Patient Date of Phone Billing Address Personal/[place] [address] * Guarantor: Michell Harp Account Type Relation to Patient Date of Phone Billing Address Personal/[place] [address] * Guarantor: Michell Harp Account Type Relation to Patient Date of Phone Billing Address Personal/[place] [address] Care Teams Spike Machine Feeder Relationship Specialty Start Date End Date Hellen Mcconnell MD [address] [place] [address] PCP - General Family Medicine 01/05/25
--- OUTSIDE RECORDS SUMMARY | 2025-01-09 12:25 | XMS_ITS | Encounter Summary ---
Author Organization [employer] Address [address] [place] [address] 7 [place] [address] Care Team Providers Care Geographic Information System Surveyor Name Role Phone Cesilia Otero MD Primary Care Provider [phone] Hellen Mcconnell MD Primary Care Provider [phone] Reason for Visit * Reason Onset Date Comments Results 03/05/2023 Encounter Details Date Type Department Care Team ([facility] st Contact Info) Description 03/05/2023 Telephone [facility] CHC MED & PEDS [address] [place], [place] [phone] Cesilia Otero MD [address] [place] [address] Results Social History Tobacco Use Types Packs/Day [...] to call us back. Routing back to [facility] nurses to try again. Tc from pt requesting results for Xray done 02/16/23 and Labs that were also done on 02/16/23. Please contact pt at [phone]. * Telephone Encounter - Thomas Clarke - 03/05/2023 10:23 AM EST Tc from pt requesting results for Xray done 02/16/23 and Labs that were also done on 02/16/23. Please contact pt at [phone]. documented in this encounter Plan of Treatment Not on file documented as of this encounter Visit Diagnoses Not on filedocumented in this encounter Additional Health Concerns Assessment Noted Time PHQ-9 Depression Total Score: 0 08/02/19 10:54 AM EDT documented as of this encounter Care Teams Geographic Information System Surveyor Relationship Specialty Start Date End Date Cesilia Otero MD [address] [place] [id number] PCP - General Family Medicine 02/23/12 01/04/25 Hellen Mcconnell MD [address] [place] [address] PCP - General Family Medicine 01/05/25 documented as of this encounter
--- OUTSIDE RECORDS SUMMARY | 2025-01-09 12:25 | XMS_ITS | Encounter Summary ---
Author Organization [employer] Address [address] [facility] 7t [place] [address] Care Team Providers Care Medical Director Of Hospice Name Role Phone Cesilia Otero MD Primary Care Provider [phone] Hellen Mcconnell MD Primary Care Provider [phone] Encounter Details Date Type Department Care Team ([facility] st Contact Info) Description 09/30/2023 Orders Only [facility] CHC MED & PEDS [address] [place], [place] [phone] Cesilia Otero MD [address] [place] [address] Social History Tobacco Use Types Packs/Day Years [...] documented as of this encounter Care Teams Medical Director Of Hospice Relationship Specialty Start Date End Date Cesilia Otero MD [address] [place] [address] PCP - General Family Medicine 02/23/12 01/04/25 Hellen Mcconnell MD [address] [place] [address] PCP - General Family Medicine 01/05/25 documented as of this encounter
[2025-01-09 14:34] LABS: Alanine Aminotransferase 20 U/L (0-31); Albumin Level 4.5 g/dL (3.5-5.0); Alkaline Phosphatase 66 U/L (39-117); Aspartate Amino Transferase 28 U/L (5-31); Cholesterol 221 mg/dL (<200); HDL Cholesterol 74 mg/dL (>40); Total Protein 7.4 g/dL (6.5-8.0); Triglycerides 139 mg/dL (<150)
== END 2025-01-09 10:24 | disposition home or self-care (01) ==
LOC: HO.CHCLDS 10:23
PROVIDERS: Visit Provider Student in an Organized Health Care Education/Training Program
DX: I10 Essential (primary) hypertension (principal); E03.9 Hypothyroidism, unspecified; E78.5 Hyperlipidemia, unspecified
CPT/HCPCS: 36415; 80061; 80076

== ENCOUNTER 2025-02-25 09:04 | Outpatient (AMB) | payer MEDICARE, SELFPAY ==
--- OUTSIDE RECORDS SUMMARY | 2025-02-25 09:06 | XMS_ITS | Encounter Summary ---
Author Organization [employer] Address [address] [place] [address] 7 [place] [address] Care Team Providers Care Turner And Former Automatic Name Role Phone Cesilia Otero MD Primary Care Provider [phone] Hellen Mcconnell MD Primary Care Provider [phone] Encounter Details Date Type Department Care Team (Latest Contact Info) Description 07/13/2018 Abstract [facility] CONVERSIONS Dental, Provider, DDS Social History Tobacco [...] Care Team (Late st Contact Info) Description 03/08/2025 2:00 PM EST Office Visit [facility] CHC MED & PEDS [address] [place] [address] Hellen Mcconnell MD [address] [place] [address] documented as of this encounter Visit Diagnoses Not on filedocumented in this encounter Care Teams Turner And Former Automatic Relationship Specialty Start Date End Date Cesilia Otero MD [address] [place] [address] PCP - General Family Medicine 02/23/12 01/04/25 Hellen Mcconnell MD [address] [place] [address] PCP - General Family Medicine 01/05/25 documented as of this encounter
--- OUTSIDE RECORDS SUMMARY | 2025-02-25 09:06 | XMS_ITS | Encounter Summary ---
Author Organization [employer] Address [address] [facility] 7t [place] [address] Care Team Providers Care Seo Team Lead Name Role Phone Hellen Mcconnell MD Primary Care Provider [phone] Encounter Details Date Type Department Care Team (Late st Contact Info) Description 01/23/2025 Orders Only [facility] CHC MED & PEDS [address] [place], [place] [phone] Provider, MD Nazia Social History Tobacco Use [...] Description 03/08/2025 2:00 PM EST Office Visit [facility] CHC MED & PEDS [address] [place] [address] Hellen Mcconnell MD [address] [place] [address] documented as of this encounter Procedures Procedure Name Priority Date/Time Associated Diagnosis Comments XR LUMBAR SPINE COMPLETE 4+ VIEWS Routine 01/20/2025 documented in this encounter Results * XR Lumbar Spine Complete 4+ Views (01/20/2025) Anatomical Region Laterality Modality Spine, L-spine Radiographic Gauri ging Historical Provider MD PEARSON XR PROCEDURES Final R esult documented in this encounter Visit Diagnoses Not on filedocumented in this encounter Additional Health Concerns Assessment Noted Time PHQ-9 Depression Total Score: 0 06/09/19 9:16 AM EDT documented as of this encounter Care Teams Seo Team Lead Relationship Specialty Start Date End Date Hellen Mcconnell MD [address] [place] [address] PCP - General Family Medicine 01/05/25 documented as of this encounter
--- OUTSIDE RECORDS SUMMARY | 2025-02-25 09:06 | XMS_ITS | Encounter Summary ---
Author Organization [employer] Address [address] [facility] 7t [place] [address] Care Team Providers Care Cloth Shader Name Role Phone Cesilia Otero MD Primary Care Provider [phone] Hellen Mcconnell MD Primary Care Provider [phone] Reason for Visit * Reason Onset Date Comments Results 03/05/2023 Encounter Details Date Type Department Care Team ([facility] st Contact Info) Description 03/05/2023 Telephone [facility] MED & PEDS [address] [place], [place] [phone] Cesilia Otero MD [address] [place] [address] Results Social History Tobacco Use Types Packs/Day [...] to call us back. Routing back to [facility] nurses to try again. Tc from pt requesting results for Xray done 02/16/23 and Labs that were also done on 02/16/23. Please contact pt at [phone]. * Telephone Encounter - Thomas Clarke - 03/05/2023 10:23 AM EST Tc from pt requesting results for Xray done 02/16/23 and Labs that were also done on 02/16/23. Please contact pt at [phone]. documented in this encounter Plan of Treatment Upcoming Encounters Date Type Department Care Team (Late st Contact Info) Description 03/08/2025 2:00 PM EST Office Visit [facility] CHC MED & PEDS [address] [place] [address] Hellen Mcconnell MD [address] [place] [address] documented as of this encounter Visit Diagnoses Not on filedocumented in this encounter Additional Health Concerns Assessment Noted Time PHQ-9 Depression Total Score: 0 08/02/19 23 10:54 AM EDT documented as of this encounter Care Teams Cloth Shader Relationship Specialty Start Date End Date Cesilia Otero MD [address] [place] [address] PCP - General Family Medicine 02/23/12 01/04/25 Hellen Mcconnell MD [address] [place] [address] PCP - General Family Medicine 01/05/25 documented as of this encounter
--- OUTSIDE RECORDS SUMMARY | 2025-02-25 09:06 | XMS_ITS | Encounter Summary ---
Author Organization [employer] Address [address] [address] Care Team Providers Care Nutrition Representative Name Role Phone Cesilia Otero MD Primary Care Provider [phone] Hellen Mcconnell MD Primary Care Provider [phone] Reason for Referral * Consultation (Routine) - Closed Specialty Diagnoses / Procedures Referred By Angelika chandra Referred To Contact Physical Therapy Diagnoses Primary osteoarthritis of right knee Kaylin Smith MD [address] [place] [address] Phone: tel: fax: [facility] [address] [place] [address] Phone: tel: fax: Referral ID Status Reason Start Date Expiration Date V isits Requested Visits Authorized [id number] Closed Specialty Services Required 08/04/2023 08/03/2024 1 1 Encounter Details Date Type Department Care Team (Late st Contact Info) Description 08/04/[address] [facility] CHC MED & PEDS [address] [place], [place] [phone] Kaylin Smith MD [address] [place], [place] [phone] Primary osteoarthritis of right knee (Primary Dx) [...] Upcoming Encounters Date Type Department Care Team ([facility] st Contact Info) Description 03/08/2025 2:00 PM EST Office Visit [facility] MED & PEDS [address] [place] [address] Hellen Mcconnell MD [address] [place] [address] Scheduled Referrals Name Type Priority Associated Diagnoses [...] documented as of this encounter Care Teams Nutrition Representative Relationship Specialty Start Date End Date Cesilia Otero MD [address] [place] [address] PCP - General Family Medicine 02/23/12 01/04/25 Hellen Mcconnell MD [address] [place] [address] PCP - General Family Medicine 01/05/25 documented as of this encounter
--- OUTSIDE RECORDS SUMMARY | 2025-02-25 09:06 | XMS_ITS | Clinical Summary ---
Author Organization [facility] Address [address] [place] [address] Phone Care Team Providers Care Medical Transcriber Name Role Phone Cesilia Otero MD Primary Care Provider [phone] Encounters Date Type Department Care Team Description 01/20/2025 10:41 AM EST - 01/20/2025 11:59 PM EST Hospital Encounter [facility] Xray [address] [place] [phone] Low back pain, unspecified; Other chronic pain Discharge Disposition: Home or Self Care from [...] 05/25/2024 1:43 PM EDT Plan of Treatment Upcoming Encounters Date Type Department Care Team (Late st Contact Info) Description 05/26/2025 10:15 AM EDT [facility]ointment [facility] [address] [address] Health Maintenance Due Date Last Done Comments Colorectal Cancer Screening: Colonoscopy 1955 DTaP,Tdap,and Td Vaccines (1 - Tdap) 06/08/1975 Pneumococcal Vaccine: 50+ Years (1 of 1 - PCV) 2006 Zoster Vaccines (1 of 2) 2006 Falls Risk Assessment 02/09/2022 Hepatitis C Screening 02/09/2022 Medicare Annual Wellness Visit 02/09/2022 Osteoporosis Screening (Bone Density Screening) 02/09/2022 Social Influencers of Health Screening 02/09/2022 Depression Screening 03/09/2024 Hypertension/CHF/CAD Annual BMP Blood Test 05/25/2024 COVID-19 Vaccine ( season) 2024 08/17/2020, 07/27/2020 Influenza Vaccine (#1) 2024 5, 12/30/2013, 11/14/2011 Breast Cancer Screening 05/25/2026 05/26/19 25, 02/27/2023, 12/27/2021, Additional history exists Cholesterol Screening (Lipid Panel) 01/09/2030 01/09/2025, 09/30/2023 RSV Immunization Adult Patients (1 - [...] Date/Time Associated Diagnosis Comments XR LUMBAR SPINE 4+ VIEWS Routine 01/20/2025 10:59 AM EST Low back pain, unspecified Other chronic pain MG MAMMO DIGITAL SCREENING W JARET BILAT Routine 05/25/2024 1:44 PM EDT Encounter for screening mammogram for breast cancer from Last 3 Months or Most Recently Relevant to Health Maintenance Results * XR Lumbar Spine 4+ Views (01/20/2025 10:59 AM EST) Anatomical Region Laterality Modality Spine, L-spine Radiographic Gauri ging 01/20/2025 12:1 2 PM EST Impressions 01/20/2025 12:13 PM EST No acute findings. 11 degree levoscoliosis with apex at L2. Degenerative disc disease is present at the L5-S1 level. There is facet joint disease at the L4-5 level. Code 06630 -------- FINAL REPORT -------- Dictated By: Andrea Mae Dictated Date: 01/20/2025 12:12 ET Assigned Physician: Andrea Mae Reviewed and Electronically Signed By: Andrea Mae Signed Date: 01/20/2025 12:13 ET Workstation ID: [id number] Transcribed By: Self Edit Transcribed Date: 01/20/2025 12:12 ET Narrative 01/20/2025 12:13 PM EST HISTORY: The patient is a 69-year-old female with chronic low back pain. FINDINGS: AP, lateral, right and left oblique, and coned-down spot lateral views of the lumbosacral spine are obtained. The study demonstrates 11 degree levoscoliosis with the apex at the L2 level. The alignment of the bony structures is otherwise anatomic. No fracture is seen. There is narrowing of the L5-S1 disc space consistent with degenerative disc disease. The remaining disc spaces are well-maintained. A few scattered small osteophytes are noted. Facet joint disease is present at the L4-5 level. Procedure Note Andrea Mae MD - 01/20/2025 HISTORY: The patient is a 69-year-old female with chronic low back pain. FINDINGS: AP, lateral, right and left oblique, and coned-down spot lateralviews of the lumbosacral spine are obtained. The study demonstrates 11degree levoscoliosis with the apex at the L2 level. The alignment of thebony structures is otherwise anatomic. No fracture is seen. There isnarrowing of the L5-S1 disc space consistent with degenerative discdisease. The remaining disc spaces are well-maintained. A few scatteredsmall osteophytes are noted. Facet joint disease is present at the L4-5level. IMPRESSION: No acute findings. 11 degree levoscoliosis with apex at L2. Degenerativedisc disease is present at the L5-S1 level. There is facet joint diseaseat the L4-5 level. Code 36511 -------- FINAL REPORT -------- Dictated By: Andrea Mae Dictated Date: 01/20/2025 12:12 ET Assigned Physician: Andrea Mae Reviewed and Electronically Signed By: Andrea Mae Signed Date: 01/20/2025 12:13 ET Workstation ID: [id number] Transcribed By: Self Edit Transcribed Date: 01/20/2025 12:12 ET Charito Bhardwaj MD IMG XR PROCEDURES Final Result * MG Mammo Digital Screening w Jaret bilat (05/25/2024 1:44 PM EDT) Anatomical Region Laterality Modality Breast Bilateral Mammography 05/25/2024 3:47 PM EDT Impressions 05/25/2024 3:48 PM EDT No evidence of breast malignancy. BI-RADS CATEGORY: 1 - NEGATIVE RECOMMENDATION: Screening bilateral mammogram is recommended in 1 year. Mammo Location: [facility], [address] [place] [address], [id number], . -------- FINAL REPORT -------- Dictated By: Carley Maldonado Dictated Date: 05/25/2024 15:47 ET Assigned Physician: Carley Maldonado Reviewed and Electronically Signed By: Carley Maldonado Signed Date: 05/25/2024 15:48 ET Workstation ID: [id number] Transcribed By: Self Edit Transcribed Date: 05/25/2024 [...] evidence of suspicious mass or architectural distortion. No worrisome calcifications are evident. There has been no significant change from prior exam(s). BREAST DENSITY: A - [...] year. Mammo Location: [facility], [address] [place] [address], [facility], . -------- FINAL REPORT -------- Dictated By: Carley Maldonado Dictated Date: 05/25/2024 15:47 ET Assigned Physician: Carley Maldonado Reviewed and Electronically Signed By: Carley Maldonado Signed Date: 05/25/2024 15:48 ET Workstation ID: [id number] Transcribed By: Self Edit Transcribed Date: 05/25/2024 15:47 ET us Self Referral Sppl IMG BI PROCEDURES Final Resul t from Last 3 Months or Most Recently Relevant to Health Maintenance Insurance [employer] MEDICARE MEDICAID - [place] Care Teams Medical Transcriber Relationship Specialty Start Date End Date Cesilia Otero MD [address] [place] [id number] PCP - General Family Medicine 05/25/24
--- OUTSIDE RECORDS SUMMARY | 2025-02-25 09:06 | XMS_ITS | Clinical Summary ---
Author Organization [employer] Address [address] [facility] [address] [place] [address] Care Team Providers Care Concessionist Name Role Phone Hellen Mcconnell MD Primary Care Provider [phone] Allergies Active Allergy Reactions Criticality Noted Date Comments Amlodipine Angioedema 07/18/2024 Chlorthalidone Palpitations Low 11/26/2018 Medications OPZ-VQA-Kmivydty V69-Ktfnpro E (Co Q-10 Vitamin E Fish Oil) 53-71-01-200 capsule Take 1 tablet by mouth. 6 Active ergocalciferol (Vitamin D-2) 1.25 MG (21120 UT) capsule Take 1 capsule by mouth [...] by mouth at bedtime. 30 tablet 11 02/13/2025 12:09 PM EST 5 07/19/19 26 Active levothyroxine (Synthroid, Levoxyl) 75 MCG tablet TAKE ONE TABLET EVERY MORNING BEFORE BREAKFAST 90 tablet 3 02/13/2025 12:09 PM EST 5 Active gemfibrozil (Lopid) 600 MG tablet TAKE ONE TABLET TWICE DAILY 60 tablet 11 5 Active olmesartan (Benicar) 5 MG tablet Take 1 tablet (5 mg) by mouth Once per day. 90 tablet 1 01/18/2025 11:14 AM EST 5 Active loratadine (Claritin) 10 MG tablet Take 1 tablet (10 mg) by mouth Once per day. 90 tablet 1 01/18/2025 11:14 AM EST 5 Active Active Problems Problem Noted Date Diagnosed Date Dental calculus 10/26/2023 Missing teeth, acquired 10/26/2023 Primary hypertension 09/22/2023 Overview (09/22/2023): DASH diet Keep as active as tolerated. Follow up w/ PCP in 4 to 6 weeks. 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 Hypothyroidism 07/04/2011 Hyperlipidemia 07/04/2011 Insomnia 07/04/2011 Cough 04/25/2011 Assessment & Plan (01/18/2025 11:18 AM EST): Differential diagnosis SHAYAN inhibitor induced cough vs upper airway cough syndrome (formerly postnasal drip) At this moment switch lisinopril to olmesartan Started patient on antihistamine RTC if no improvement, scheduled for TP appointment Allergic rhinitis 04/01/2011 Allergic rhinitis due to pollen 02/13/2011 Encounters Date Type Department Care Team Description 02/07/2025 Telephone [facility] [address] [place] [address] Hellen Mcconnell MD Results 01/24/2025 Telephone [facility] [address] [place] [address] Hellen Mcconnell MD X ray results 01/23/2025 Orders Only [facility] [address] [place] [address] Nazai Lorenzana MD 01/18/2025 10:20 AM EST Office Visit [facility] [address] [place] [address] Hellen Mcconnell MD Chronic cough (Primary Dx); Chronic low back pain, unspecified back pain laterality, unspecified whether sciatica present 01/18/2025 Travel 01/10/2025 Results Follow-Up [facility] [address] [place] [address] Cesilia Otero MD Lipid Panel, Standard, Hepatic Function Panel 01/09/2025 Telephone [facility] [address] [place] [address] Hellen Mcconnell MD no showed 01/02/2025 10:00 AM EDT Office Visit [facility] [address] [place] [address] Cesilia Otero MD Primary hypertension (Primary Dx); Hypothyroidism, unspecified type; Hyperlipidemia, unspecified hyperlipidemia type; Screening for colon cancer 01/02/2025 Travel 12/30/2024 Telephone [facility] [address] [place] [address] Cesilia Otero MD Chart Prep from Last 3 Months Immunizations Immunization Administration [...] Sign Reading Time Taken Comments Blood Pressure 144/80 01/18/2025 10:37 AM EST Pulse 80 01/18/2025 10:37 AM EST Temperature 36.6 C (97.8 F) 01/18/2025 10:37 AM EST Respiratory Rate 18 01/18/2025 10:37 AM EST Oxygen Saturation 97% 06/08/2024 9:15 AM EDT Inhaled Oxygen Concentration - - Weight 65.4 kg (144 lb 3.2 oz) 01/18/2025 10:37 AM EST Height 156 cm (5' 1.42 ) 01/18/2025 10:37 AM EST Body Mass Index 26.88 01/18/2025 10:37 AM EST Plan of Treatment Upcoming Encounters Date Type Department Care Team (Late st Contact Info) Description 03/08/2025 2:00 PM EST Office Visit [facility] [address] [place] [address] Hellen Mcconnell MD [address] [place] [address] Health Maintenance Due Date Last Done Comments CT Colonography 1955 Colonoscopy 1955 FIT 1955 Sigmoidoscopy 1955 Hepatitis C Screening 1974 [...] Postponed from 11/07/2024 (Patient Refused) Tobacco Screening 01/18/2026 01/18/2025 FOBT 01/25/2026 01/25/2025 Colorectal Cancer Screening 01/26/2028 FIT DNA/Cologuard 01/26/2028 01/25/2025 Lipid Panel 01/09/2030 01/09/2025, 04/0 06/2024, 09/30/2023, Additional history exists RSV Patients and Patients [...] Procedure Name Priority Date/Time Associated Diagnosis Comments LAB COLOGUARD COLON CANCER SCREEN Routine 01/25/2025 11:11 AM EST Screening for colon cancer XR LUMBAR SPINE COMPLETE 4+ VIEWS Routine 01/20/2025 HEPATIC FUNCTION PANEL Routine 01/09/2025 10:24 AM EST Primary hypertension Hyperlipidemia, unspecified hyperlipidemia type LIPID PANEL, STANDARD Routine 01/09/2025 10:24 AM EST Primary hypertension Hypothyroidism, unspecified type Hyperlipidemia, unspecified hyperlipidemia type HM MAMMOGRAPHY Routine [...] Recently Relevant to Health Maintenance Results * Cologuard?? colon cancer screening (01/25/2025 11:11 AM EST) Cologuard Result Negative Negative 02/01/20 12:01 AM EST [facility] (CLIA #:[id number]) Comment: The Cologuard (TM) test was performed on this specimen. NEGATIVE TEST RESULT. A negative Cologuard result indicates a low likelihood that a colorectal cancer (CRC) or advanced adenoma (adenomatous polyps with more advanced pre-malignant features) is present. The chance that a person with a negative Cologuard test has a colorectal cancer is less than 1 in 1500 (negative predictive value >99.9%) or has an advanced adenoma is less than 5.3% (negative predictive value 94.7%). These data are based on a prospective cross-sectional study of 10,000 individuals at average risk for colorectal cancer who were screened with both Cologuard and colonoscopy. (Jessi Joiner al, N Engl J Med 2014;370(14):1286- 1297) The normal value (reference range) for this assay is negative. COLOGUARD RE-SCREENING RECOMMENDATION: Periodic colorectal cancer screening is an important part of preventive healthcare for asymptomatic individuals at average risk for colorectal cancer. Following a negative Cologuard result, the [place] Cancer Society and U.S. Multi-Society Task Force screening guidelines recommend a Cologuard re-screening interval of 3 years. References: [place] [employer] Guideline for Colorectal Cancer Screening: https://www.cancer.org/cancer/ylwag-ttfsgy-tpwboo/tozkqajbm-akypczdgc-mhfumjp/ac s-rec ommendations.html.; José Luis DK, Perri BAIRD, Godfrey SantosK, Colorectal Cancer Screening: Recommendations for Physicians and Patients from the U.S. Multi-Society Task Force on Colorectal Cancer Screening , Am J Gastroenterology 2017; 112:9384-7859. TEST DESCRIPTION: Composite algorithmic analysis of stool DNA-biomarkers with hemoglobin immunoassay. Quantitative values of individual biomarkers are not reportable and are not associated with individual biomarker result reference ranges. Cologuard is intended for colorectal cancer screening of adults of either sex, 45 years or older, who are at average-risk for colorectal cancer (CRC). Cologuard has been approved for use by the U.S. FDA. The performance of Cologuard was established in a cross sectional study of average-risk adults aged 50-84. Cologuard performance in patients ages 45 to 49 years was estimated by sub-group analysis of near-age groups. Colonoscopies performed for a positive result may find as the most clinically significant lesion: colorectal cancer [4.0%], advanced adenoma (including sessile serrated polyps greater than or equal to 1cm diameter) [20%] or non- advanced adenoma [31%]; or no colorectal neoplasia [45%]. These estimates are derived from a prospective cross-sectional screening study of 10,000 individuals at average risk for colorectal cancer who were screened with both Cologuard and colonoscopy. (Jessi Joiner al, N Engl J Med 2014;370(14):0042-2430.) Cologuard may produce a false negative or false positive result (no colorectal cancer or precancerous polyp present at colonoscopy follow up). A negative Cologuard test result does not guarantee the absence of CRC or advanced adenoma (pre-cancer). The current Cologuard screening interval is every 3 years. ([place] Cancer Society and U.S. Multi-Society Task Force). Cologuard performance data in a 10,000 patient pivotal study using colonoscopy as the reference method can be accessed at the following location: www.[employer]/results. Additional description of the Cologuard test process, warnings and precautions can be found at www.[employer].com. Stool specimen (specimen) 01/25/2025 11:11 AM EST 01/26/2025 10:48 AM EST Cesilia Otero MD LAB MOLECULAR DIAGNOSTICS ORDERA BLES Final Result [facility] (CLIA #:[id number]) [address] [place] [address], * XR Lumbar Spine Complete 4+ Views (01/20/2025) Anatomical Region Laterality Modality Spine, L-spine Radiographic Gauri ging Historical Provider IMG XR PROCEDURES Final R esult * Hepatic Function Panel (01/09/2025 10:24 AM EST) Bilirubin, Total 0.4 0.0 - 1.0 mg/dL [facility] Bilirubin, Direct 0.2 0.0 - 0.5 mg/dL [facility] Aspartate Amino Transferase 28 5 - 31 U/L [facility] Alanine Aminotransferase 20 0 - 31 U/L [facility] Total Protein 7.4 6.5 - 8.0 g/dL [facility] Albumin Level 4.5 3.5 - 5.0 g/dL [facility] Alkaline Phosphatase 66 39 - 117 U/L [facility] Blood Venous blood specimen / Unknown 01/09/2025 10:24 AM EST 01/09/2025 2:06 PM EST Cesilia Otero MD LAB BLOOD ORDERABLES Final Resul t Performing Organization Address [facility] Co de Phone Number [facility] [address] [place] [phone] * (ABNORMAL) Lipid Panel, Standard (01/09/2025 10:24 AM EST) Triglycerides 139 <150 mg/dL [facility] Comment:Desirable Triglyceri de: less than 150 mg/dLBorderline High Triglyceride 150-199 mg/dLHigh Triglyceride: 200-499 mg/dLVery High Triglyceride: greater than or equal to 5OO mg/dL Cholesterol 221(H) <200 mg/dL [facility] Comment:Desirable Cholestero l: less than 200 mg/dLBorderline High Cholesterol: 200-239 mg/dLHigh Cholesterol: greater than 239 mg/dL LDL Cholesterol Calculated 120(H) <100 mg/dL [facility] Comment:Desirable LDL: less than 100 mg/dLNear Optimal/Above Optimal LDL: 110- 129 mg/dLBorderline High LDL: 130-159 mg/dLHigh LDL: 160-189 mg/dLVery High LDL: greater than or equal to 190 mg/dL HDL Cholesterol 74 >40 mg/dL [facility] Comment:Desirable HDL: great er than 40 mg/dL Note: This HDL assay may give artificially low results in patients with liver disease. Blood Venous blood specimen / Unknown 01/09/2025 10:24 AM EST 01/09/2025 2:06 PM EST Cesilia Otero MD LAB BLOOD ORDERABLES Final Resul t Performing Organization Address [facility]/ZIP Co de Phone Number [facility] [address] [place] [phone] * Hm Mammography (05/25/2024 2:35 PM EDT) Anatomical Region Laterality Modality Other us Historical Provider HEALTH MAINTENANCE Final Result from Last 3 Months or Most Recently Relevant to Health Maintenance [place] [address] [facility] [place] [address] [facility] * Guarantor: Michell Harp Account Type Relation to Patient Date of Phone Billing Address Personal/[place] [address] * Guarantor: Michell Harp Account Type Relation to Patient Date of Phone Billing Address [place] [address] * Guarantor: Michell Harp Account Type Relation to Patient Date of Phone Billing Address Personal/[place] [address] Care Teams Concessionist Relationship Specialty Start Date End Date Hellen Mcconnell MD [address] [place] [phone] PCP - General Family Medicine 01/05/25
--- OUTSIDE RECORDS SUMMARY | 2025-02-25 09:06 | XMS_ITS | Encounter Summary ---
Author Organization [employer] Address [address] [facility] [address] [place] [address] Care Team Providers Care Senior Stock Plan Administrator Name Role Phone Cesilia Otero MD Primary Care Provider [phone] Hellen Mcconnell MD Primary Care Provider [phone] Encounter Details Date Type Department Care Team (Late st Contact Info) Description 03/31/2023 Telephone [facility] [address] [place] [address] Cesilia Otero MD [address] [place], [place] [phone] Social History Tobacco Use Types Packs/Day Years [...] 03/08/2025 2:00 PM EST Office Visit [facility] [address] [place] [address] Hellen Mcconnell MD [address] [place] [address] documented as of this encounter Visit Diagnoses Not on filedocumented in this encounter Additional Health Concerns Assessment Noted Time PHQ-9 Depression Total Score: 0 08/02/19 10:54 AM EDT documented as of this encounter Care Teams Senior Stock Plan Administrator Relationship Specialty Start Date End Date Cesilia Otero MD [address] [place] [phone] PCP - General Family Medicine 02/23/12 01/04/25 Hellen Mcconnell MD [address] [place] [address] PCP - General Family Medicine 01/05/25 documented as of this encounter
--- OUTSIDE RECORDS SUMMARY | 2025-02-25 09:06 | XMS_ITS | Data Portability ---
Author Organization [place] - [facility], All[facility] Address [address] [place] [phone] Care Team Providers Care Supervisor [employer]ers [employer] Emulsifiers Name Role Phone [facility] Primary Care Provider [phone] Assessment Encounter Date Assessment Date Assessment LastModified by Organization Details LastModified Time 01/26/2025 01/26/2025 - Mild to moderate age-related hearing loss bilaterally. - Chronic nasal congestion with edema and structural narrowing bilaterally. - Chronic throat irritation likely secondary to prior lisinopril use. Plan: For nasal congestion, I recommend using fluticasone (Flonase) nasal spray, two sprays in each nostril once daily for six to eight weeks to reduce swelling and improve breathing. Structurally, the nose is narrow bilaterally, but surgical intervention is not advised at this time. Regarding hearing loss, I discussed that her hearing is generally good for conversational settings but may be challenging in noisy environments such as restaurants or grocery stores. Hearing aids may be considered in the future if difficulties persist. She will continue to watch at this time can consider future audiogram for evaluation if progression. For throat irritation, I reassured her that lisinopril-induce d chronic cough often leads to throat tenderness, which typically resolves over time. No further intervention is necessary as her throat examination was unremarkable. Patient education was provided regarding the use of nasal sprays and the potential future need for hearing aids. No additional concerns were noted during the visit. [email or web address] Not available 01/26/2025 11:31:16 Plan of Treatment Reminders Order Date Submit Date Provider Last Modified By Organization Details Last Modified Time Details Appointments None record ed. Lab None record ed. Referral None record ed. Procedures None record ed. Surgeries None record ed. Imaging None record ed. Medication Orders None record ed. Patient TargetsNo targets recorded. Patient Instructions Encounter Date Encounter Id Patient Instructions Last Modified By Organization Details Last Modified Time 01/26/2025 [id number] - Use fluticasone (Flonase) nasal spray, two sprays in each nostril once daily for six to eight weeks. - Monitor hearing and consider hearing aids in the future if difficulties persist. - No further intervention needed for throat irritation; symptoms should resolve over time. [email or web address] Not available 01/26/2025 11:25:52 Please note: Parts of this encounter note have been generated by AI based on audio conversation. Patient consent was required prior to utilizing this technology. Content review was required prior to finalizing the note. [email or web address] Not available 01/26/2025 11:25:52 Reason for Referral None Reported. Results Created Date Observation Date Name Description Value Unit Range Abnormal Flag Note LastModifiedBy Organization Detail LastModifiedTime 01/27/20 audio gram No observ ation record ed. BARCODE Not Available 2024 13:15:57 Result Notes None recorded. Problems Name Problem SNOMED Code Status Onset Date Resolution Date Notes Provider Name and Address Organization Details Recorded Time Sensorineural hearing loss of bilateral ears 423628186 Active 2024 TIP MALLOY, AUD [address] [facility],[place] [address], [place], [phone], [facility] - [facility] 10:38:17 Nasal obstruction 968407974 Active 2024 Cade Lam, DO [address] [facility], [address] [facility], [place], [address], [facility] - [facility] 5 11:30:53 Sore throat 049448043 Active 2024 Cade Lam DO [address] [facility], [address] [facility], [place], [address], [facility] - [facility] 5 11:30:58 Chronic cough 62623195 Active 2024 Cade Lam DO [address] [facility],[address], [place], [address], [facility] - [facility] 5 11:31:20 Problem Notes None recorded. Procedures Surgical History Date Name Laterality Status Provider Name and Address Organization Details Recorded Time 01/26/2025 Comp Audio with Tymps - 95147 & 31441 completed TIP MALLOY, [facility] [address] [facility],[place] [address], [place], [address], [place] - [facility] 01/26/2025 10:38:13 Imaging Results None recorded. Procedure Notes None recorded. Medical Equipment None Reported. Allergies Allergen ID Allergen Name Allergen Category Reaction Reaction Severity Criticality Documentation Date Start Date Code Code System Note Provider Name and Address Organization Details Recorded Time 344046 amlodipin e medicatio n angioedem a Not available Not available 01/26/20252024 80946 RxNorm Not Available [employer] 5 06:13:30 263533 chlorthal idone medicatio n palpitati ons Not available low 01/26/20252018 2409 RxNorm Not Available [employer] 5 06:13:30 Medications Name Sig Start Date Stop Date Status Note LastModified by Organization Details LastModified Time amlodipine 2.5 mg tablet TAKE ONE TABLET EVERY MORNING active Not Available Not Available No t Available amlodipine 5 mg tablet TAKE ONE TABLET EVERY DAY active Not Available Not Available No t Available triamcinolone acetonide 0.1 % topical cream APPLY TO THE AFFECTED AREA(S) TWICE DAILY IN THE MORNING AND AT BEDTIME NEEDED active Not Available Not Available No t Available simvastatin 40 mg tablet TAKE ONE TABLET AT BEDTIME active Not Available Not Available No t Available levothyroxine 75 mcg tablet TAKE ONE TABLET EVERY MORNING BEFORE BREAKFAST active Not Available Not Available No t Available gemfibrozil 600 mg tablet TAKE ONE TABLET TWICE DAILY active Not Available Not Available No t Available simvastatin 20 mg tablet TAKE ONE TABLET AT BEDTIME active Not Available Not Available No t Available lisinopril 10 mg tablet TAKE ONE TABLET DAILY active Not Available Not Available No t Available loratadine 10 mg tablet TAKE ONE TABLET ONCE DAILY active Not Available Not Available N ot Available olmesartan 5 mg tablet TAKE ONE TABLET EVERY DAY active Not Available Not Available No t Available diclofenac 1 % topical gel APPLY 2 GRAM'S TO AFFECTED AREA(s) THREE TIMES DAILY NEEDED active Not Available Not Available No t Available melatonin 5 mg tablet TAKE ONE OR TWO TABLETS AT BEDTIME active Not Available Not Available No t Available blood pressure test kit-large cuff Check blood pressure on arm as directed EVERY OTHER DAY active Not Available Not Available No t Available Vitals Date Recorded Body height Body mass index (BMI) Body weight Provider Name and Address Organization Details Last Updated DateTime 01/26/2025 157.48 cm 26.3 kg/m2 33117.3 g Natalia Medina [place] - [facility] 01/26/2025 10:58:45 Social History None recorded. Functional Status None recorded. Mental Status None recorded. Family History Nothing Reported. Medical History No medical history recorded. Gynecological HistoryNo gynecological history recorded. Obstetrics History GPAL:G 0 P 0 0 0 0 Past Encounters Encounter ID Performer Location Encounter Start Date Encounter Closed Date Diagnosis/Indication Diagnosis SNOMED-CT Code Diagnosis ICD10 Code Diagnosis IMO Codes Diagnosis Note [id number] Cade Lam DO [facility] [address] [address] 01/26/2025 10:01:56 01/26/2025 16:36:10 Sensorineural hearing loss of bilateral ears 234878239 H90.3 55962082 Right Ear:Normal hearing through 500 Hz sloping to a moderate SNHL with excellent speech discrimina tion.Type A tympanogra m.Left Ear:Normal hearing through 500 Hz sloping to a moderate SNHL with excellent speech discrimina tion.Type A tympanogra m. Nasal obstruction 772739 000 J34.89 09171 Sore throat 349270679 J0 2.9 76364 Chronic cough 45199404 R 05.3 17521 On lisinopril , recently switched notes improvemen t Health Concerns Section Related Observation LastModified by Organization Detai ls LastModified Time None Recorded Concern Status LastModified by Organization Details LastModified Time None Recorded Advance Directives Directive None Recorded Payers Insurance Date Sequence Insurance Name Policy Number Policy Tello Covered Member ID Tello Member ID Guarantor Name 01/26/2025 1 [place] B-[place] [employer] Michell Harp [id number] Michell Harp 01/26/2025 1 [facility] (MEDICARE REPLACEMENT/ADV ANTAGE - PPO) [id number] Michell Harp [id number] Michell Harp 01/26/2025 1 [place] [employer] Michell Harp [id number] Michell Harp 01/26/2025 1 [facility] - DOS ON OR AFTER 2022 - MEDICARE ADVANTAGE [place] (MEDICARE REPLACEMENT/ADV ANTAGE - PPO) Michell Harp [id number] Michell Harp Notes Date Note Type Note Provider Name and Address Organization Details Recorded Time 01/26/2025 text/html Michell Harp is a 69-year-old female who presents with concerns regarding her ears, nose, and throat. She reports a persistent stuffy nose and has not found relief with medications or water. Examination findings reveal edema and swelling within the nasal passages, and her nose is structurally narrow bilaterally. She also reports a chronic cough and throat irritation lasting several months, which she associates with prior use of lisinopril. Her medication was changed to loratadine, and she notes some improvement in symptoms. She denies tinnitus, dizziness, vertigo, migraines, headaches, acid reflux, heartburn, fevers, chills, or weight loss. Her voice remains unchanged, and she does not report any new symptoms related to her ears or throat. Cade Lam, DO [address] [facility],[place] [address], [place], [address], [place] - [facility] 01/26/2025 11:32:55 OBGyn Episode No OBEpisode recorded.
--- OUTSIDE RECORDS SUMMARY | 2025-02-25 09:07 | XMS_ITS | Continuity of Care Document ---
Author Organization [facility], [facility] Address [address] [place] [address] Care Team Providers Care Trouble Tracer Name Role Phone [facility] Primary Care Provider Assessment Encounter Date Assessment Date Assessment LastModified [...] By Organization Details Last Modified Time 01/26/2025 15537 - Use fluticasone (Flonase) nasal spray, two [...] Time Sensorineural hearing loss of bilateral ears 443651771 Active 2024 TIP MALLOY, AUD [address] [facility],[place] [place] [address], [place], [address], [facility] - [facility] 5 10:38:17 Nasal obstruction 037131574 Active 2024 Cade Lam DO [address] [address], [place], [address], [facility] - [facility] 5 11:30:53 Sore throat 614349448 Active 2024 Cade Lam DO [address] [address], [place], [address], [facility] - [facility] [place] 5 11:30:58 Chronic cough 51180167 Active 2024 Cade Lam DO [address] [facility],[place] [address], [place], [address], [facility] - [facility] [place] 11:31:20 Problem Notes None recorded. Procedures Surgical History Date Name Laterality Status Provider Name and Address Organization Details Recorded Time 01/26/2025 Comp Audio with Tymps - 38073 & 01226 completed TIP MALLOY, [facility] [address] [facility],[place] [address], [place], [address], [place] - [facility] 01/26/2025 10:38:13 Imaging Results None recorded. Procedure Notes None recorded. Medical Equipment None Reported. Allergies Allergen ID Allergen Name Allergen Category Reaction Reaction Severity Criticality Documentation Date Start Date Code Code System Note Provider Name and Address Organization Details Recorded Time 183641 amlodipin e medicatio n angioedem a Not available Not available 01/26/20252024 87212 RxNorm Not Available [facility] [employer] 06:13:30 690543 chlorthal idone medicatio n palpitati ons Not available low 01/26/20252018 2409 RxNorm Not Available [facility] [employer] 06:13:30 Medications Name Sig Start Date Stop [...] Updated DateTime 01/26/2025 157.48 cm 26.3 kg/m2 75688.3 g Natalia Medina [place] - [facility] 01/26/2025 10:58:45 Social History None recorded. Functional Status None recorded. Mental Status None recorded. Family History Nothing Reported. Medical History No medical history recorded. Gynecological HistoryNo gynecological history recorded. Obstetrics History GPAL:G 0 P 0 0 0 0 Past Encounters Encounter ID Performer Location Encounter Start Date Encounter Closed Date Diagnosis/Indication Diagnosis SNOMED-CT Code Diagnosis ICD10 Code Diagnosis IMO Codes Diagnosis Note [id number] Cade Lam DO [facility] [address] [address] 01/26/2025 10:01:56 01/26/2025 16:36:10 Sensorineural hearing loss of bilateral ears 495604410 H90.3 [id number] Right Ear:Normal hearing through 500 Hz sloping to a moderate SNHL with excellent speech discrimina tion.Type A tympanogra m.Left Ear:Normal hearing through 500 Hz sloping to a moderate SNHL with excellent speech discrimina tion.Type A tympanogra m. Nasal obstruction 761597 000 J34.89 35442 Sore throat 389554241 J0 2.9 32156 Chronic cough 74042637 R 05.3 87778 On lisinopril , recently switched notes improvemen t Health Concerns Section Related Observation LastModified by Organization Detai ls LastModified Time None Recorded Concern Status LastModified by Organization Details LastModified Time None Recorded Payers Encounter Date Sequence Insurance Name Policy Number Policy Tello Covered Member ID Tello Member ID Guarantor Name 01/26/2025 1 [facility] (MEDICARE REPLACEMENT/A DVANTAGE - PPO) [id number] Michell Harp [id number] Michell Harp Notes Date Note Type Note [...] ears or throat. Cade Lam, DO [address] [facility],[place] [address], [place], [address], [facility] - [facility] 01/26/2025 11:32:55 OBGyn Episode No OBEpisode recorded.
--- OUTSIDE RECORDS SUMMARY | 2025-02-25 09:07 | XMS_ITS | Encounter Summary ---
Author Organization [employer] Address [address] [facility] [address] [place] [address] Care Team Providers Care Trade Mark Examiner Name Role Phone Cesilia Otero MD Primary Care Provider [phone] Hellen Mcconnell MD Primary Care Provider [phone] Encounter Details Date Type Department Care Team ([facility] st Contact Info) Description 09/30/2023 Orders Only [facility] [address] [place], [place] [phone] Cesilia Otero MD [address] [place], [place] [phone] Social History Tobacco Use Types Packs/Day Years [...] Description 03/08/2025 2:00 PM EST Office Visit [facility] [address] [place] [address] Hellen Mcconnell MD [address] [place] [address] documented as of this encounter Visit Diagnoses Not on filedocumented in this encounter Additional Health Concerns Assessment Noted Time PHQ-9 Depression Total Score: 0 08/02/19 10:54 AM EDT documented as of this encounter Care Teams Trade Mark Examiner Relationship Specialty Start Date End Date Cesilia Otero MD [address] [place] [address] PCP - General Family Medicine 02/23/12 01/04/25 Hellen Mcconnell MD [address] [place] [address] PCP - General Family Medicine 01/05/25 documented as of this encounter
--- OUTSIDE RECORDS SUMMARY | 2025-02-25 09:07 | XMS_ITS | Encounter Summary ---
Author Organization [employer] Address [address] [facility] [address] [place] [address] Care Team Providers Care Statistical Programmer Name Role Phone Cesilia Otero MD Primary Care Provider [phone] Hellen Mcconnell MD Primary Care Provider [phone] Encounter Details Date Type Department Care Team (Late st Contact Info) Description 05/26/2024 Orders Only [facility] [address] [place], [place] [phone] Provider, MD Nazia Social History Tobacco Use [...] 03/08/2025 2:00 PM EST Office Visit [facility] [address] [place] [address] Hellen Mcconnell MD [address] [place] [address] documented as of this encounter Procedures Procedure Name Priority Date/Time Associated Diagnosis Comments HM MAMMOGRAPHY Routine 05/25/2024 2:35 PM EDT documented in this encounter Results * Hm Mammography (05/25/2024 2:35 PM EDT) Anatomical Region Laterality Modality Other us Historical Provider HEALTH MAINTENANCE Final Result documented in this encounter Visit Diagnoses Not on filedocumented in this encounter Additional Health Concerns Assessment Noted Time PHQ-9 Depression Total Score: 0 08/02/19 23 10:54 AM EDT documented as of this encounter Care Teams Statistical Programmer Relationship Specialty Start Date End Date Cesilia Otero MD [address] [place] [address] PCP - General Family Medicine 02/23/12 01/04/25 Hellen Mcconnell MD [address] [place] [address] PCP - General Family Medicine 01/05/25 documented as of this encounter
[2025-02-25 09:10] VITALS: BP 116/70; PULSE 96; RESP 16; TEMP 36.8; O2SAT 96; BMI 26.4
--- NOTE | 2025-02-25 09:10 | MHC.OFFWIV ---
Intake Vital Signs 02/25/25 09:10 Height 5 ft 3 in Weight 149 lb BMI 26.4 BP 116/70 Blood Pressure Location Rt brachial Position Sitting Respiration 16 Pulse 96 Pulse Source Pulse Oximeter Temp 98.3 F Temp Source Oral Pulse Oximetry (%) 96 Oxygen Delivery Method Room Air Intake Visit Reasons: EP Neck pain Intake Note: Pt is here today c/o neck pain injurn noted x4days Patient Tobacco Use Status: Never used Tobacco Field Education Coordinator Required: No Allergies No Known Allergies Allergy (Verified 02/25/25 09:30) Medication List - Last Reconciled 02/25/25 by Stella Queen, PRODUCTION PROOFREADER- gemfibrozil 600 mg PO BID levothyroxine 75 mcg PO QAM loratadine 10 mg PO DAILY olmesartan 5 mg PO DAILY simvastatin 40 mg PO BEDTIME HPI HPI Comments History of Present Illness Details History of Present Illness The patient is a 69 year old female presenting with neck pain. Neck Pain: - The patient reports the onset of a new type of neck pain approximately four to five days ago, which is different from previous episodes. - The pain is located at the base of her head, started on the right side, and has since spread to the left side. - She denies any associated fever, chills, headache, or recent trauma. - For this acute pain, she has used Tylenol without relief. History of Herniated Disc: - The patient has a history of pain in her upper and lower back. - She reports having been diagnosed with three bulging discs a long time ago. Past Medical History - History of upper and lower back pain - History of three bulging discs - No known drug allergies Review of Systems - Constitutional: Denies fever or chills. - Neurological: Denies headache. - Musculoskeletal: Reports severe neck pain at the base of the head that began 4-5 days ago, initially on the right and now on the left. Reports associated neck stiffness. Has a history of upper and lower back pain. Medical Decision Making The patient is a 69-year-old female who presented with acute, severe neck pain and stiffness over the last 4-5 days. She has a history of bulging discs and chronic back pain but describes this neck pain as a new experience. She denies systemic symptoms such as fever, chills, or headache. The physical exam was negative for nuchal rigidity and a negative Brudzinski's sign, therefore ruling out meningeal irritation, in the absence of fever and headache. The leading diagnosis is acute cervical muscle spasm. The plan is to manage her symptoms with a muscle relaxant, baclofen, and to switch from Tylenol to ibuprofen for better anti-inflammatory effect. She was educated on the sedative effects of baclofen and advised on conservative measures like warm compresses. Close follow-up with her primary care provider was strongly recommended, particularly if her symptoms fail to improve, to rule out more serious underlying conditions. Plan 1. Neck Pain - The patient's presentation with acute severe neck pain and stiffness is most consistent with severe muscle spasm. - A prescription for the muscle relaxant baclofen has been sent to her preferred pharmacy, to be taken up to three times a day as needed. - The patient was counseled on potential side effects, including drowsiness, and advised not to drive or consume alcohol while taking baclofen. - Recommended ibuprofen over Tylenol for its anti-inflammatory properties. - Advised conservative measures including warm moist heat and gentle massage. - Instructed to follow up with her primary care provider, especially if her symptoms do not improve. Patient Instructions - A prescription for a muscle relaxer called baclofen was sent to [facility] on [address] in [place]. You can take this medication up to three times a day as needed for your neck pain. - This muscle relaxer can make you feel very tired. Do not drive, drink alcohol, or do anything that requires you to be alert while taking it. - It would be better to take ibuprofen instead of Tylenol, because ibuprofen will help more with the inflammation and swelling in your neck muscles. - You may also use warm, moist heat and gentle massage on your neck to help with the pain. - Make sure to schedule a follow-up visit with your primary care doctor, especially if your neck pain does not get better. Consent Patient was informed and verbally consented to the use of an ambient scribe for clinic note documentation during this visit. [facility] Social History Patient Tobacco Use Status: Never used Tobacco Physical Exam Vital Signs: Last Vital Signs Temp 98.3 F 02/25/25 09:10 Pulse 96 02/25/25 09:10 Resp 16 02/25/25 09:10 BP 116/70 02/25/25 09:10 Pulse Ox 96 02/25/25 09:10 Oxygen Delivery Method Room Air 02/25/25 09:10 BMI result Body Mass Index 26.4 Const Orientation/consciousness: patient oriented x3 Neck Other: LROM d/t pain, has pain with palpation generally speaking to traps and cervical paraspinal muscles, overlying skin is normal. No deficits. Neck: Yes normal visual inspection, Yes no lymphadenopathy, Yes no meningeal signs and Yes trachea midline Neuro General: patient oriented x3, gait normal, tone normal, moves all extremities, no meningeal signs, no focal motor deficits and CN's II-XI intact bilaterally Cognition (Neuro): normal cognition Assessment & Plan Assessment & Plan (1) Neck muscle spasm: Code(s): M62.838 - Other muscle spasm Plan . Medications: New baclofen 10 mg PO TID PRN 15 tabs 0RF muscle spasm Coding Level of Care Code Est Pt Level 4 (20231) Diagnoses Neck muscle spasm M62.838
== END 2025-02-25 09:51 | disposition home or self-care (01) ==
PROVIDERS: PCP Student in an Organized Health Care Education/Training Program; Visit Provider Nurse Practitioner Family
DX: M62.838 Other muscle spasm (principal)

== ENCOUNTER → 2025-02-25 09:04 | Outpatient (BNVA) | payer MEDICARE, OTHER, SELFPAY | PROVIDERS: PCP Student in an Organized Health Care Education/Training Program; Visit Provider Nurse Practitioner Family | DX: M54.2 Cervicalgia (principal); M62.838 Other muscle spasm | CPT/HCPCS: 99212 ==